=== PATIENT | female | born 1950 | race Caucasian/White ===

== ENCOUNTER 2019-03-26 20:22 | Emergency (ER) | payer OTHER ==
--- OUTSIDE RECORDS SUMMARY | 2019-03-26 20:24 | XMS REPORT ---
:1950 [facility] [address] Monzon [address] [place] [id number] Care Team Providers Name Role Phone Unavailable Unavailable Unavailable Problems This patient has no known problems. Allergies, Adverse Reactions, Alerts This patient has no known allergies or adverse reactions. Medications This patient has no known medications.
[2019-03-26] MEDS ORDERED: KETOROLAC 30 MG/ML INJ ONE (21:30)
[2019-03-26] MEDS ORDERED: HYDROCODONE/APAP 5/325 MG TAB ONE (21:30)
--- NOTE | 2019-03-26 21:32 | EDPHYS ---
Physician Documentation [facility] Name: Yani Giang Age: 68 yrs Sex: Female : 1950 Arrival Date: 03/26/2019 Time: 20:25 Bed 18 Private MD: ED Physician Chris Terry HPI: 03/26 21:20 This 68 yrs old Female presents to ER via Ambulatory with complaints of tw4 Shoulder Pain. 21:20 The patient or guardian complains of pain, that is chronic. left shoulder. Context: The tw4 problem was sustained at home, resulted from repetitive motion, lifting. Onset: The symptoms/episode began/occurred just prior to arrival. Modifying factors: the symptoms are alleviated by nothing. The symptoms are aggravated by lifting weight, nothing. Associated signs and symptoms: The patient has no apparent associated signs or symptoms. Severity of symptoms: At their worst the symptoms were mild, in the emergency department the symptoms are unchanged. The patient has not experienced similar symptoms in the past. Historical: - Allergies: 20:41 Betadine; tl1 20:41 TETRACYCLINES; tl1 20:41 Ceclor; tl1 20:41 Augmentin; tl1 20:41 Talwin; tl1 20:41 mecaptopurine; tl1 20:41 Codeine; tl1 20:41 Darvocet-N 100; tl1 20:41 Naproxen; tl1 20:41 Vytorin 10-10; tl1 20:41 Crestor; tl1 20:41 Levaquin; tl1 20:41 Azithromycin; tl1 - Immunization history:: Adult Immunizations not up to date. - Social history:: Smoking status: Patient/guardian denies using tobacco, Patient uses alcohol, but reports only rare drinking. - Ebola Screening: : Patient negative for fever greater than or equal to 101.5 degrees Fahrenheit, and additional compatible Ebola Virus Disease symptoms Patient denies exposure to infectious person Patient denies travel to an Ebola-affected area in the 21 days before illness onset. ROS: 21:20 Constitutional: Negative for fever, chills, and weight loss, Eyes: Negative for injury, tw4 pain, redness, and discharge, Cardiovascular: Negative for chest pain, palpitations, and edema, Respiratory: Negative for shortness of breath, cough, wheezing, and pleuritic chest pain, Abdomen/GI: Negative for abdominal pain, nausea, vomiting, diarrhea, and constipation, Back: Negative for injury and pain, Neuro: Negative for headache, weakness, numbness, tingling, and seizure. 21:20 MS/extremity: Positive for decreased range of motion, Negative for injury or acute deformity, deformity, ecchymosis, erythema, puncture, rash, swelling. Exam: 21:20 Constitutional: This is a well developed, well nourished patient who is awake, alert, tw4 and in no acute distress. Head/Face: Normocephalic, atraumatic. Chest/axilla: Normal chest wall appearance and motion. Nontender with no deformity. No lesions are appreciated. Cardiovascular: Regular rate and rhythm with a normal S1 and S2. No gallops, murmurs, or rubs. Normal PMI, no JVD. No pulse deficits. Respiratory: Lungs have equal breath sounds bilaterally, clear to auscultation and percussion. No rales, rhonchi or wheezes noted. No increased work of breathing, no retractions or nasal flaring. Abdomen/GI: Soft, non-tender, with normal bowel sounds. No distension or tympany. No guarding or rebound. No evidence of tenderness throughout. 21:20 Musculoskeletal/extremity: Extremities: all appear grossly normal, with no appreciated pain with palpation, ROM: limited active range of motion due to pain, limited passive range of motion due to pain. Vital Signs: 20:42 BP 155 / 75; Pulse 77; Resp 17; Temp 98.9; Pulse Ox 100% ; Weight 66.22 kg; Height 5 tl1 ft. 5 in. (165.10 cm); Pain 10/10; 21:52 BP 138 / 76; Pulse 71; Resp 16; Pulse Ox 100% on R/A; rv 20:42 Body Mass Index 24.30 (66.22 kg, 165.10 cm) tl1 MDM: 20:52 Patient medically screened. tw4 03/27 06:22 Differential diagnosis: tendonitis. Data reviewed: vital signs, nurses notes. Data tw4 interpreted: hall monitor: not applicable for this patient encounter. Counseling: I had a detailed discussion with the patient and/or guardian regarding: the historical points, exam findings, and any diagnostic results supporting the discharge/admit diagnosis. Medication response: Toradol markedly relieved the patient's pain. Response to treatment: and as a result, I will discharge patient. 03/26 21:19 Order name: Grabiel; Complete Time: :30 tw4 Administered Medications: 03/26 21:30 Drug: TORadol 60 mg Route: IM; Site: right deltoid; rv 21:50 Follow up: Response: No adverse reaction rv 21:30 Drug: Clymer 5 mg-325 mg 1 tabs Route: PO; rv 21:50 Follow up: Response: RASS: Alert and Calm (0) rv Disposition: 03/26/19 21:32 Discharged to Home. Impression: Shoulder lesion, unspecified, left shoulder. - Condition is Stable. - Discharge Instructions: Rotator Cuff Injury, Rotator Cuff Tendinitis, Shoulder Pain, Shoulder Sprain. - Prescriptions for Ibuprofen 800 mg Oral Tablet - take 1 tablet by ORAL route every 8 hours As needed take with food; 30 tablet. Tylenol- Codeine #3 300-30 mg Oral Tablet - take 2 tablet by ORAL route every 6 hours As needed; 6 tablet. - Medication Reconciliation Form, Thank You Letter, Antibiotic Education, Prescription Opioid Use form. - Follow up: Private Physician; When: Upon discharge from the Emergency Department; Reason: Recheck today's complaints, Continuance of care. Follow up: Sidney Pitts MD; When: Upon discharge from the Emergency Department; Reason: Recheck today's complaints, Continuance of care. - Problem is an ongoing problem. - Symptoms have improved. Signatures: Aleyda Austin, RN RN tl1 Chris Terry MD MD tw4 Nii Simmons RN RN rv Corrections: (The following items were deleted from the chart) 21:52 21:32 03/26/2019 21:32 Discharged to Home. Impression: Shoulder lesion, unspecified, rv left shoulder. Condition is Stable. Forms are Medication Reconciliation Form, Thank You Letter, Antibiotic Education, Prescription Opioid Use. Follow up: Private Physician; When: Upon discharge from the Emergency Department; Reason: Recheck today's complaints, Continuance of care. Follow up: Sidney Pitts; When: Upon discharge from the Emergency Department; Reason: Recheck today's complaints, Continuance of care. Problem is an ongoing problem. Symptoms have improved. tw4
--- NOTE | 2019-03-26 21:32 | ER ---
Nurse's Notes [facility] Name: Yani Giang Age: 68 yrs Sex: Female : 1950 Arrival Date: 03/26/2019 Time: 20:25 Bed 18 Private MD: Diagnosis: Shoulder lesion, unspecified, left shoulder Presentation: 03/26 20:36 Presenting complaint: Patient states: I have a torn rotator cuff and have been being tl1 treated by Dr Perez since July of 2016. I had a third injection in July of 2018. I woke up Mar 24 with severe pain in my left shoulder. I am suppose to see Dr Pitts in the morning but the pain is to severe. Transition of care: patient was not received from another setting of care. Onset of symptoms is unknown. Risk Assessment: Do you want to hurt yourself or someone else? Patient reports no desire to harm self or others. Initial Sepsis Screen: Does the patient meet any 2 criteria? No. Patient's initial sepsis screen is negative. Does the patient have a suspected source of infection? No. Patient's initial sepsis screen is negative. Care prior to arrival: Medication(s) given: Tylenol. 20:36 Method Of Arrival: Ambulatory tl1 20:36 Acuity: CHING 3 tl1 Historical: - Allergies: 20:41 Betadine; tl1 20:41 TETRACYCLINES; tl1 20:41 Ceclor; tl1 20:41 Augmentin; tl1 20:41 Talwin; tl1 20:41 mecaptopurine; tl1 20:41 Codeine; tl1 20:41 Darvocet-N 100; tl1 20:41 Naproxen; tl1 20:41 Vytorin 10-10; tl1 20:41 Crestor; tl1 20:41 Levaquin; tl1 20:41 Azithromycin; tl1 - Immunization history:: Adult Immunizations not up to date. - Social history:: Smoking status: Patient/guardian denies using tobacco, Patient uses alcohol, but reports only rare drinking. - Ebola Screening: : Patient negative for fever greater than or equal to 101.5 degrees Fahrenheit, and additional compatible Ebola Virus Disease symptoms Patient denies exposure to infectious person Patient denies travel to an Ebola-affected area in the 21 days before illness onset. Screenin:00 Abuse screen: Denies threats or abuse. Denies injuries from another. Nutritional rv screening: No deficits noted. 21:00 Tuberculosis screening: No symptoms or risk factors identified. Fall Risk None rv identified. Assessment: 21:00 General: Appears in no apparent distress. uncomfortable, Behavior is calm, cooperative. rv 21:00 Pain: Complains of pain in left shoulder. Neuro: Level of Consciousness is awake, rv alert, obeys commands, Oriented to person, place, time, situation. Derm: Skin is intact. Musculoskeletal: Range of motion: limited in left shoulder Swelling absent. Vital Signs: 20:42 BP 155 / 75; Pulse 77; Resp 17; Temp 98.9; Pulse Ox 100% ; Weight 66.22 kg; Height 5 tl1 ft. 5 in. (165.10 cm); Pain 10/10; 21:52 BP 138 / 76; Pulse 71; Resp 16; Pulse Ox 100% on R/A; rv 20:42 Body Mass Index 24.30 (66.22 kg, 165.10 cm) tl1 ED Course: 20:25 Patient arrived in ED. jg7 20:39 Triage completed. tl1 20:41 Arm band placed on right wrist. tl1 20:51 Nii Simmons, ANGELINA is Primary Nurse. rv 20:52 Chris Terry MD is Attending Physician. tw4 21:00 Patient has correct armband on for positive identification. Bed in low position. Call rv light in reach. Side rails up X 1. Adult w/ patient. 21:31 Sidney Pitts MD is Referral Physician. tw4 21:52 No provider procedures requiring assistance completed. Patient did not have IV access rv during this emergency room visit. Administered Medications: 21:30 Drug: TORadol 60 mg Route: IM; Site: right deltoid; rv 21:50 Follow up: Response: No adverse reaction rv 21:30 Drug: Brady 5 mg-325 mg 1 tabs Route: PO; rv 21:50 Follow up: Response: RASS: Alert and Calm (0) rv Outcome: 21:32 Discharge ordered by . tw4 21:52 Discharged to home ambulatory, with family. rv 21:52 Condition: good 21:52 Discharge instructions given to patient, family, Instructed on discharge instructions, follow up and referral plans. medication usage, Demonstrated understanding of instructions, follow-up care, medications, Prescriptions given X 2. 21:52 Patient left the ED. rv Signatures: Aleyda Austin RN RN tl1 Chris Terry MD MD tw4 Nii Simmons RN RN rv Sade [id number]
[2019-03-26 23:00] VITALS: TEMP 98.9; O2SAT 100
[2019-03-26 23:02] VITALS: BP 138/76
== END 2019-03-26 21:52 | disposition home or self-care (01) ==
LOC: ER 20:22
DX: M75.92 Shoulder lesion, unspecified, left shoulder (principal); X50.3XXA Overexertion from repetitive movements, initial encounter; Y93.89 Activity, other specified; Y92.009 Unspecified place in unspecified non-institutional (private) residence as the place of occurrence of the external cause; Z88.1 Allergy status to other antibiotic agents; Z88.3 Allergy status to other anti-infective agents; Z88.5 Allergy status to narcotic agent; Z88.6 Allergy status to analgesic agent; Z88.8 Allergy status to other drugs, medicaments and biological substances
CPT/HCPCS: 96372; 99283

== ENCOUNTER 2019-04-03 19:43 | Inpatient (IN) | payer OTHER ==
--- OUTSIDE RECORDS SUMMARY | 2019-04-03 19:45 | XMS REPORT ---
:1950 [facility] [address] Monzon [address] [place] [id number] Care Team Providers Name Role Phone Unavailable Unavailable Unavailable Problems This patient has no known problems. Allergies, Adverse Reactions, Alerts This patient has no known allergies or adverse reactions. Medications This patient has no known medications.
[2019-04-03 20:50] LABS: Absolute Lymphocytes (CBC) 1.2 K/uL (0.7-4.9); Basophils % 0.6 % (0-1.3); Hematocrit 38.7 % (36.0-45.0); Lymphocytes % 22.1 % (15.3-44.8); MPV 8.4 fL (7.6-11.3)
--- NOTE | 2019-04-03 21:03 | RAD REPORT ---
EXAM DESCRIPTION: RAD - Chest Single View - 04/03/2019 8:54 pm CLINICAL HISTORY: CHEST PAIN Chest pain. COMPARISON: Chest Pa And Lat (2 Views) dated 08/16/2017; Chest Pa And Lat (2 Views) dated 06/10/2016; CH EST SINGLE VIEW dated 08/24/2013; CHEST SINGLE VIEW dated 09/23/2007 FINDINGS: Portable technique limits examination quality. The lungs are emphysematous but grossly clear. The heart is normal in size. No displaced fractures. IMPRESSION: COPD.
[2019-04-03 21:11] LABS: Albumin 3.6 g/dL (3.4-5.0); Bilirubin Direct 0.1 mg/dL (0-0.2); Bilirubin Total 0.5 mg/dL (0.2-1.0); Magnesium 1.8 mg/dL (1.8-2.4); Potassium 3.6 mmol/L (3.5-5.1); Protein, Total 6.7 g/dL (6.4-8.2); Troponin (Emerg Dept Use Only) 0.4 ng/mL (0.0-0.045)
[2019-04-03 21:16] LABS: Urine Blood NEGATIVE (NEG); Urine Glucose NEGATIVE (NEG)
[2019-04-03 21:17] LABS: Urine Protein NEGATIVE (NEG)
[2019-04-03 21:25] LABS: Protime INR 1.06
--- NOTE | 2019-04-03 22:00 | ER ---
Nurse's Notes [facility] Name: Yani Giang Age: 69 yrs Sex: Female : 1950 Arrival Date: 04/03/2019 Time: 19:50 Bed 16 Private MD: Diagnosis: Other chest pain;Angina pectoris Presentation: 04/03 19:56 Presenting complaint: EMS states: Pt c/o chest pain around 7pm, it happened when pt ca1 bent over to lift stuff from the floor. Pt reports pain radiates to the shoulders and to the back. Pt also reports extensive rotator cuff injury on the L shoulder since 2016 and takes Tylenol #3 for it. LO chest is tender upon palpation and release. PT has No history of heart conditions. VS stable, NSR on 12L. Transition of care: patient was not received from another setting of care. Onset of symptoms was April 03, 2019 at 19:00. Risk Assessment: Do you want to hurt yourself or someone else? Patient reports no desire to harm self or others. Initial Sepsis Screen: Does the patient meet any 2 criteria? No. Patient's initial sepsis screen is negative. Does the patient have a suspected source of infection? No. Patient's initial sepsis screen is negative. Care prior to arrival: Medication(s) given: Toradol 30MG IV IV initiated. 20 GA, in the left hand. 19:56 Method Of Arrival: EMS: [facility] ca1 19:56 Acuity: CHING 3 ca1 Historical: - Allergies: 20:10 Augmentin; ca1 20:10 Azithromycin; ca1 20:10 Betadine; ca1 20:10 Ceclor; ca1 20:10 Codeine; ca1 20:10 Crestor; ca1 20:10 Darvocet-N 100; ca1 20:10 Levaquin; ca1 20:10 mecaptopurine; ca1 20:10 Naproxen; ca1 20:10 Talwin; ca1 20:10 TETRACYCLINES; ca1 20:10 Vytorin 10-10; ca1 20:10 meloxicam; ca1 20:10 Tramadol HCl; ca1 20:10 Bactrim; ca1 20:10 Ciprofloxacin; ca1 20:10 Red Dye; ca1 20:10 WelChol; ca1 20:10 Celebrex; ca1 - Home Meds: 20:10 Ziac/Biospar 2.5/6.25mg every other day [Active]; aspirin 81 mg oral TbEC 1 tab every ca1 other day [Active]; Prilosec 20 mg Oral cpDR 1 cap once daily [Active]; Fish Oil 1,000 mg oral cap [Active]; - PMHx: 20:10 GERD; Hepatitis; Leukemia T cell ALL; Rheumatic Fever; IBS; ca1 - Immunization history:: Adult Immunizations not up to date, Pneumococcal vaccine is not up to date, Flu vaccine is not up to date. - Social history:: Smoking status: Patient/guardian denies using tobacco. - Ebola Screening: : Patient negative for fever greater than or equal to 101.5 degrees Fahrenheit, and additional compatible Ebola Virus Disease symptoms Patient denies exposure to infectious person Patient denies travel to an Ebola-affected area in the 21 days before illness onset No symptoms or risks identified at this time. - Family history:: not pertinent. Screenin:12 Abuse screen: Denies threats or abuse. Denies injuries from another. Nutritional ca1 screening: No deficits noted. Tuberculosis screening: No symptoms or risk factors identified. Fall Risk IV access (20 points). Assessment: 20:12 General: Appears in no apparent distress. comfortable, Behavior is calm, cooperative, ca1 appropriate for age. Pain: Complains of pain in anterior aspect of left upper chest Pain radiates to back, shoulders Pain currently is 7 out of 10 on a pain scale. at worst was 10 out of 10 on a pain scale. Quality of pain is described as heavy, pressure, Pain began 1 hour ago. Is intermittent. Neuro: Level of Consciousness is awake, alert, obeys commands, Oriented to person, place, time, situation, Appropriate for age. Cardiovascular: Heart tones S1 S2 present Capillary refill < 3 seconds Patient's skin is warm and dry. Rhythm is sinus rhythm. Respiratory: Airway is patent Respiratory effort is even, unlabored, Respiratory pattern is regular, symmetrical. GI: Abdomen is round non-distended, Bowel sounds present X 4 quads. Abd is soft and non tender X 4 quads. : No deficits noted. No signs and/or symptoms were reported regarding the genitourinary system. EENT: No deficits noted. No signs and/or symptoms were reported regarding the EENT system. Derm: Skin is intact, is healthy with good turgor, Skin is pink, warm \T\ dry. Musculoskeletal: Circulation, motion, and sensation intact. Capillary refill < 3 seconds, Range of motion: intact in all extremities. 22:30 Reassessment: Patient and/or family updated on plan of care and expected duration. Pain ea level reassessed. Patient is alert, oriented x 3, equal unlabored respirations, skin warm/dry/pink. 23:50 Reassessment: Patient and/or family updated on plan of care and expected duration. Pain ea level reassessed. Patient is alert, oriented x 3, equal unlabored respirations, skin warm/dry/pink. 04/04 00:00 Reassessment: Patient and/or family updated on plan of care and expected duration. Pain ea level reassessed. Patient is alert, oriented x 3, equal unlabored respirations, skin warm/dry/pink. Vital Signs: 04/03 20:10 BP 156 / 95; Pulse 76; Resp 15 S; Temp 99.5(O); Pulse Ox 99% on R/A; Weight 66.68 kg ca1 (R); Height 5 ft. 5 in. (165.10 cm) (R); Pain 7/10; 21:28 BP 146 / 77; Pulse 74; Resp 15; Temp 98.9(O); Pulse Ox 99% on R/A; mh5 22:48 BP 141 / 74; Pulse 79; Resp 19; Pulse Ox 100% on R/A; ea 04/04 00:10 BP 131 / 70; Pulse 69; Resp 18; Temp 98; Pulse Ox 100% ; ea 04/03 20:10 Body Mass Index 24.46 (66.68 kg, 165.10 cm) ca1 ED Course: 04/03 19:50 Patient arrived in ED. bb 19:52 Flor Navarro, ANGELINA is Primary Nurse. ca1 20:02 Triage completed. ca1 20:05 EKG done, by ED staff, reviewed by Russell Zuniga MD. mh5 20:05 Patient has correct armband on for positive identification. Placed in gown. Bed in low mh5 position. Call light in reach. Side rails up X2. Adult w/ patient. Warm blanket given. satellite project site monitor on. Pulse ox on. NIBP on. 20:10 Russell Zuniga MD is Attending Physician. bishop 20:10 Arm band placed on right wrist. ca1 20:12 No provider procedures requiring assistance completed. Maintain EMS IV. Dressing ca1 intact. Good blood return noted. Site clean \T\ dry. Gauge \T\ site: 20G L hand. 20:46 Initial lab(s) drawn, by me, sent to lab. ca1 20:54 XRAY Chest (1 view) In Process Unspecified. EDMS 21:56 Doe Bryant MD is Hospitalizing Provider[facility] 04/04 00:25 Patient admitted, IV remains in place. ea Administered Medications: 04/03 22:46 Not Given (Patient Refused): Lopressor 25 mg PO once ea 22:47 Not Given (Patient Refused): PlaVIX 300 mg PO once ea 22:47 Not Given (Patient Refused): Lopressor 2.5 mg IVP once; Hold for SBP <100 or HR <60. ea 23:05 Drug: Zofran 4 mg Route: IVP; Site: left hand; ea 04/04 00:00 Follow up: Response: No adverse reaction ea 04/03 23:06 Drug: Aspirin 162 mg Route: PO; ea 04/04 00:34 Follow up: Response: No adverse reaction ea 04/03 23:06 Drug: Pepcid 20 mg Route: IVP; Site: left hand; ea 04/04 00:00 Follow up: Response: No adverse reaction ea 04/03 23:06 Drug: morphine 2 mg Route: IVP; Site: left hand; ea 04/04 00:00 Follow up: Response: No adverse reaction; Pain is decreased ea 04/03 23:39 Drug: Lovenox 1 mg/kg Route: Sub-Q; Site: right lower abdomen; ea 04/04 00:00 Follow up: Response: No adverse reaction ea 04/03 23:40 Drug: Lopressor 2.5 mg Route: IVP; Site: left hand; ea 04/04 00:36 Follow up: Response: No adverse reaction ea 04/03 23:40 Drug: PlaVIX 300 mg Route: PO; ea 04/04 00:00 Follow up: Response: No adverse reaction ea 04/03 23:41 Drug: Lopressor 25 mg Route: PO; ea 04/04 00:35 Follow up: Response: No adverse reaction ea Outcome: 04/03 21:57 Decision to Hospitalize by Provider. [facility] 04/04 00:25 Admitted to Med/surg accompanied by tech, via wheelchair, room 207, with chart, Report ea called to Receiving nurse on second floor Condition: stable Instructed on the need for admit, Demonstrated understanding of instructions. 00:33 Patient left the ED. ea Signatures: Dispatcher [employer] Russell Hilliard MD MD cha Ballard, Brenda, RN RN Marion Madrigal [facility] Shayla Wheeler RN RN Flor Worley RN RN ca1
--- NOTE | 2019-04-03 22:01 | EDPHYS ---
Physician Documentation [facility] Name: Yani Giang Age: 69 yrs Sex: Female : 1950 Arrival Date: 04/03/2019 Time: 19:50 Bed 16 Private MD: ED Physician Russell Zuniga HPI: 04/03 21:54 This 69 yrs old Female presents to ER via EMS with complaints of Chest Pain. bishop 21:54 The patient or guardian reports chest pain that is located primarily in the substernal bishop area, anterior chest wall, left. Onset: 1 day(s) ago. The pain does not radiate. Associated signs and symptoms: Pertinent positives: dizziness, shortness of breath. The chest pain is described as a pressure, squeezing. Duration: The patient or guardian reports a single episode, that is still ongoing, but improving. Modifying factors: The symptoms are alleviated by remaining still, the symptoms are aggravated by activity, exertion. Severity of pain: At its worst the pain was mild in the emergency department the pain has improved moderately. The patient has experienced similar episodes in the past, a few times. Historical: - Allergies: 20:10 Augmentin; ca1 20:10 Azithromycin; ca1 20:10 Betadine; ca1 20:10 Ceclor; ca1 20:10 Codeine; ca1 20:10 Crestor; ca1 20:10 Darvocet-N 100; ca1 20:10 Levaquin; ca1 20:10 mecaptopurine; ca1 20:10 Naproxen; ca1 20:10 Talwin; ca1 20:10 TETRACYCLINES; ca1 20:10 Vytorin 10-10; ca1 20:10 meloxicam; ca1 20:10 Tramadol HCl; ca1 20:10 Bactrim; ca1 20:10 Ciprofloxacin; ca1 20:10 Red Dye; ca1 20:10 WelChol; ca1 20:10 Celebrex; ca1 - Home Meds: 20:10 Ziac/Biospar 2.5/6.25mg every other day [Active]; aspirin 81 mg oral TbEC 1 tab every ca1 other day [Active]; Prilosec 20 mg Oral cpDR 1 cap once daily [Active]; Fish Oil 1,000 mg oral cap [Active]; - PMHx: 20:10 GERD; Hepatitis; Leukemia T cell ALL; Rheumatic Fever; IBS; ca1 - Immunization history:: Adult Immunizations not up to date, Pneumococcal vaccine is not up to date, Flu vaccine is not up to date. - Social history:: Smoking status: Patient/guardian denies using tobacco. - Ebola Screening: : Patient negative for fever greater than or equal to 101.5 degrees Fahrenheit, and additional compatible Ebola Virus Disease symptoms Patient denies exposure to infectious person Patient denies travel to an Ebola-affected area in the 21 days before illness onset No symptoms or risks identified at this time. - Family history:: not pertinent. ROS: 21:54 Constitutional: Negative for fever, chills, and weight loss, Eyes: Negative for injury, bishop pain, redness, and discharge, ENT: Negative for injury, pain, and discharge, Neck: Negative for injury, pain, and swelling, Respiratory: Negative for shortness of breath, cough, wheezing, and pleuritic chest pain, Abdomen/GI: Negative for abdominal pain, nausea, vomiting, diarrhea, and constipation, Back: Negative for injury and pain, : Negative for injury, bleeding, discharge, and swelling, MS/Extremity: Negative for injury and deformity, Skin: Negative for injury, rash, and discoloration, Neuro: Negative for headache, weakness, numbness, tingling, and seizure, Psych: Negative for depression, anxiety, suicide ideation, homicidal ideation, and hallucinations, Allergy/Immunology: Negative for hives, rash, and allergies, Endocrine: Negative for neck swelling, polydipsia, polyuria, polyphagia, and marked weight changes, Hematologic/Lymphatic: Negative for swollen nodes, abnormal bleeding, and unusual bruising. 21:54 Cardiovascular: Positive for chest pain, of the anterior aspect of left upper chest and left breast. Exam: 21:54 Constitutional: This is a well developed, well nourished patient who is awake, alert, bishop and in no acute distress. Head/Face: Normocephalic, atraumatic. Eyes: Pupils equal round and reactive to light, extra-ocular motions intact. Lids and lashes normal. Conjunctiva and sclera are non-icteric and not injected. Cornea within normal limits. Periorbital areas with no swelling, redness, or edema. ENT: Nares patent. No nasal discharge, no septal abnormalities noted. Tympanic membranes are normal and external auditory canals are clear. Oropharynx with no redness, swelling, or masses, exudates, or evidence of obstruction, uvula midline. Mucous membranes moist. Neck: Trachea midline, no thyromegaly or masses palpated, and no cervical lymphadenopathy. Supple, full range of motion without nuchal rigidity, or vertebral point tenderness. No Meningismus. Chest/axilla: Normal chest wall appearance and motion. Nontender with no deformity. No lesions are appreciated. Cardiovascular: Regular rate and rhythm with a normal S1 and S2. No gallops, murmurs, or rubs. Normal PMI, no JVD. No pulse deficits. Respiratory: Lungs have equal breath sounds bilaterally, clear to auscultation and percussion. No rales, rhonchi or wheezes noted. No increased work of breathing, no retractions or nasal flaring. Abdomen/GI: Soft, non-tender, with normal bowel sounds. No distension or tympany. No guarding or rebound. No evidence of tenderness throughout. Back: No spinal tenderness. No costovertebral tenderness. Full range of motion. Female : Normal external genitalia. Skin: Warm, dry with normal turgor. Normal color with no rashes, no lesions, and no evidence of cellulitis. MS/ Extremity: Pulses equal, no cyanosis. Neurovascular intact. Full, normal range of motion. Neuro: Awake and alert, GCS 15, oriented to person, place, time, and situation. Cranial nerves II-XII grossly intact. Motor strength 5/5 in all extremities. Sensory grossly intact. Cerebellar exam normal. Normal gait. Psych: Awake, alert, with orientation to person, place and time. Behavior, mood, and affect are within normal limits. 21:54 Musculoskeletal/extremity: DVT Exam: No signs of deep vein thrombosis. no pain, no swelling, no tenderness, negative Homans' sign noted on exam, no appreciated bluish discoloration, no erythema, no increased warmth. Vital Signs: 20:10 BP 156 / 95; Pulse 76; Resp 15 S; Temp 99.5(O); Pulse Ox 99% on R/A; Weight 66.68 kg ca1 (R); Height 5 ft. 5 in. (165.10 cm) (R); Pain 7/10; 21:28 BP 146 / 77; Pulse 74; Resp 15; Temp 98.9(O); Pulse Ox 99% on R/A; 5 22:48 BP 141 / 74; Pulse 79; Resp 19; Pulse Ox 100% on R/A; ea 04/04 00:10 BP 131 / 70; Pulse 69; Resp 18; Temp 98; Pulse Ox 100% ; ea 04/03 20:10 Body Mass Index 24.46 (66.68 kg, 165.10 cm) ca1 MDM: 04/03 20:10 Patient medically screened. [facility] 21:55 Data reviewed: vital signs, nurses notes, lab test result(s), EKG, radiologic studies, bishop plain films. 04/03 20:15 Order name: Basic Metabolic Panel; Complete Time: 21:51 ca1 04/03 20:15 Order name: CBC with Diff; Complete Time: 21:51 ca1 04/03 20:15 Order name: LFT's; Complete Time: 21:51 ca1 04/03 20:15 Order name: Magnesium; Complete Time: 21:51 ca1 04/03 20:15 Order name: NT PRO-BNP; Complete Time: 21:51 ca1 04/03 20:15 Order name: PT-INR; Complete Time: 21:51 ca1 04/03 20:15 Order name: Troponin (emerg Dept Use Only); Complete Time: 21:51 ca1 04/03 21:10 Order name: Urine Dipstick--Ancillary (enter results); Complete Time: 21:51 2 04/03 22:32 Order name: CBC with Automated Diff EDMS 04/03 22:32 Order name: CBC with Automated Diff EDMS 04/03 22:32 Order name: CKMB Creatine Kinase MB EDMS 04/03 22:32 Order name: CKMB Creatine Kinase MB EDMS 04/03 22:32 Order name: CKMB Creatine Kinase MB EDMS 04/03 22:32 Order name: CKMB Creatine Kinase MB EDMS 04/03 20:15 Order name: XRAY Chest (1 view); Complete Time: 21:51 ca1 04/03 22:32 Order name: Comprehensive Metabolic Panel EDMS 04/03 22:32 Order name: Comprehensive Metabolic Panel EDMS 04/03 22:32 Order name: Magnesium EDMS 04/03 22:32 Order name: Magnesium EDMS 04/03 22:32 Order name: Phosphorus EDMS 04/03 22:32 Order name: Phosphorus EDMS 04/03 22:33 Order name: Troponin I EDOR 04/03 22:33 Order name: Troponin I EDOR 04/03 22:33 Order name: Troponin I EDOR 04/03 22:33 Order name: Troponin I [facility] 04/03 20:15 Order name: EKG; Complete Time: 20:16 ca1 04/03 20:15 Order name: Cardiac monitoring; Complete Time: 20:15 ca1 04/03 20:15 Order name: EKG - Nurse/Tech; Complete Time: 20:16 ca1 04/03 20:15 Order name: IV Saline Lock; Complete Time: 20:16 ca1 04/03 20:15 Order name: Labs collected and sent; Complete Time: 20:46 ca1 04/03 20:15 Order name: O2 Per Protocol; Complete Time: 20:16 [facility] 04/03 20:15 Order name: O2 Sat Monitoring; Complete Time: 20:16 ca1 04/03 21:53 Order name: EKG - Nurse/Tech; Complete Time: 23:07 2 04/03 21:54 Order name: EKG; Complete Time: 21:55 [facility] 04/03 22:32 Order name: CONS Physician Consult [facility] 04/03 22:32 Order name: Heart Healthy EDOR Administered Medications: 22:46 Not Given (Patient Refused): Lopressor 25 mg PO once ea 22:47 Not Given (Patient Refused): PlaVIX 300 mg PO once ea 22:47 Not Given (Patient Refused): Lopressor 2.5 mg IVP once; Hold for SBP <100 or HR <60. ea 23:05 Drug: Zofran 4 mg Route: IVP; Site: left hand; ea 04/04 00:00 Follow up: Response: No adverse reaction ea 04/03 23:06 Drug: Aspirin 162 mg Route: PO; ea 04/04 00:34 Follow up: Response: No adverse reaction ea 04/03 23:06 Drug: Pepcid 20 mg Route: IVP; Site: left hand; ea 04/04 00:00 Follow up: Response: No adverse reaction ea 04/03 23:06 Drug: morphine 2 mg Route: IVP; Site: left hand; ea 04/04 00:00 Follow up: Response: No adverse reaction; Pain is decreased ea 04/03 23:39 Drug: Lovenox 1 mg/kg Route: Sub-Q; Site: right lower abdomen; ea 04/04 00:00 Follow up: Response: No adverse reaction ea 04/03 23:40 Drug: Lopressor 2.5 mg Route: IVP; Site: left hand; ea 04/04 00:36 Follow up: Response: No adverse reaction ea 04/03 23:40 Drug: PlaVIX 300 mg Route: PO; ea 04/04 00:00 Follow up: Response: No adverse reaction ea 04/03 23:41 Drug: Lopressor 25 mg Route: PO; ea 04/04 00:35 Follow up: Response: No adverse reaction ea Disposition: 04/03/19 21:57 Hospitalization ordered by Doe Bryant for Inpatient Admission. Preliminary diagnosis are Other chest pain, Angina pectoris. - Bed requested for Telemetry/MedSurg (Inpatient). - Status is Inpatient Admission. ea - Condition is Fair. - Problem is new. - Symptoms have improved. UTI on Admission? No Signatures: Dispatcher [employer] EDMS Russell Zuniga MD MD cha Lasagna, Tonya, RN RN tl1 Shayla Wheeler RN RN ea Westbrook, MyKena 2 Flor Navarro RN RN ca1 Corrections: (The following items were deleted from the chart) 04/03 22:44 21:57 Hospitalization Ordered by Doe Bryant MD for Inpatient Admission. Preliminary tl1 diagnosis is Other chest pain; Angina pectoris. Bed requested for Telemetry/MedSurg (Inpatient). Status is Inpatient Admission. Condition is Fair. Problem is new. Symptoms have improved. UTI on Admission? No. bishop 04/04 00:33 04/03 22:44 04/03/2019 21:57 Hospitalization Ordered by Doe Bryant MD for Inpatient ea Admission. Preliminary diagnosis is Other chest pain; Angina pectoris. Bed requested for Telemetry/MedSurg (Inpatient). Status is Inpatient Admission. Condition is Fair. Problem is new. Symptoms have improved. UTI on Admission? No. tl1
[2019-04-03] MEDS ORDERED: ACETAMINOPHEN 500 MG TAB PO PRN (22:26)
[2019-04-03] MEDS ORDERED: ONDANSETRON 4 MG/2 ML VIAL IV PRN (22:26)
--- NOTE | 2019-04-03 22:31 | P.HP ---
Certification for Inpatient Patient admitted to: Inpatient With expected LOS: >2 Midnights Patient will require the following post-hospital care: None Practitioner: I am a practitioner with admitting privileges, knowledge of patient current condition, hospital course, and medical plan of care. Services: Services provided to patient in accordance with Admission requirements found in Title 42 Section 412.3 of the Code of Federal Regulations Patient History Date of Service: 04/03/19 Reason for admission: Chest Pain History of Present Illness: 69-year-old female with past medical history of rheumatic fever, GERD, rotator cuff tendonitis status post repair, leukemia T-cell, hepatitis came with a chest discomfort which started all of a sudden when she was doing laundry. Pain is retrosternal with radiation to left arm and left shoulder. At the time of interview the pain is 3/10 in severity. Denies any diaphoresis. No nausea vomiting or diarrhea. Denies any shortness of breath. Patient states that she had an exposure to carbon monoxide in the kitchen. No previous cardiac history. Family history of CAD The patient was assessed in the ER and was found to have an elevated troponin and given her chest pain admitted for further cardiac workup. Allergies acetaminophen [From Darvocet-N 100] Allergy (Unverified 08/24/13 15:15) Unknown amoxicillin trihydrate [From Augmentin] Allergy (Unverified 08/24/13 15:15) Unknown azithromycin Allergy (Unverified 08/24/13 15:15) Unknown colesevelam HCl [From WelChol] Allergy (Unverified 08/24/13 15:15) Unknown naproxen Allergy (Unverified 08/24/13 15:15) Unknown potassium clavulanate [From Augmentin] Allergy (Unverified 08/24/13 15:15) Unknown povidone-iodine [From Betadine] Allergy (Unverified 08/24/13 15:15) Unknown propoxyphene napsylate [From Darvocet-N 100] Allergy (Unverified 08/24/13 15:15) Unknown rosuvastatin calcium [From Crestor] Allergy (Unverified 08/24/13 15:15) Unknown soap [From Betadine] Allergy (Unverified 08/24/13 15:15) Unknown tetracycline [Tetracycline] Allergy (Unverified 08/24/13 15:15) Unknown codiene Allergy (Uncoded 08/24/13 15:15) Unknown levoquin Allergy (Uncoded 08/24/13 15:15) Unknown mecaptopurine Allergy (Uncoded 08/24/13 15:15) Unknown tawin Allergy (Uncoded 08/24/13 15:15) Unknown vytorin Allergy (Uncoded 08/24/13 15:15) Unknown Home medications list reviewed: Yes - Past Medical/Surgical History Past Medical History: Reviewed- Non-Contributory Past Surgical History: Reviewed- Non-Contributory - Family History Family History: Reviewed- Non-Contributory Review of Systems 10-point ROS is otherwise unremarkable Cardiovascular: Chest Pain Physical Examination - Vital Signs Temperature: 98.1 F Blood Pressure: 156/95 Pulse: 76 Respirations: 20 - Physical Exam General: Alert, In no apparent distress, Oriented x3 HEENT: Atraumatic, Normocephalic Neck: Supple, 2+ carotid pulse no bruit Respiratory: Clear to auscultation bilaterally, Normal air movement Cardiovascular: Normal pulses, Regular rate/rhythm Capillary refill: <2 Seconds Gastrointestinal: Soft and benign, W/out hepatosplenomegaly Musculoskeletal: No clubbing, No swelling, Tenderness, Other (With tenderness in the left shoulder with decreased range of motion) Integumentary: No rashes, No breakdown Neurological: Normal speech, Normal strength at 5/5 x4 extr Lymphatics: No axilla or inguinal lymphadenopathy Urinary: Other (No bladder distention) External genitalia: Deferred Rectal: Deferred - Studies Laboratory Data (last 24 hrs) 04/03/19 20:41: PT 12.5, INR 1.06 04/03/19 20:41: WBC 5.5, Hgb 13.3, Hct 38.7, Plt Count 197 04/03/19 20:41: Sodium 134 L, Potassium 3.6, BUN 8, Creatinine 0.91, Glucose 118 H, Magnesium 1.8, Total Bilirubin 0.5, AST 17, ALT 26, Alkaline Phosphatase 122 H Assessment and Plan - Problems (Diagnosis) (1) NSTEMI (non-ST elevated myocardial infarction) Current Visit: Yes Status: Acute (2) Unstable angina Current Visit: Yes Status: Acute (3) History of rotator cuff tear Current Visit: Yes Status: Acute (4) GERD (gastroesophageal reflux disease) Current Visit: Yes Status: Chronic (5) Carbon monoxide exposure Current Visit: Yes Status: Acute - Plan Non ST elevation AK Unstable angina GERD Rotator cuff tendinitis left side carbon monoxide exposure Plan Monitor under telemetry Trend cardiac enzyme Start on aspirin Could Not start statin due to the allergy Cardiology consult Will get an echocardiogram Pain control Will get a lipid panel and A1c Continue home medications and titrate as needed Oxygen support Will get an ABG GI/DVT prophylaxis Advanced directives full code - Advance Directives Does patient have a Living Will: No Does patient have a Durable POA for Healthcare: No Time Spent Managing Pts Care (In Minutes): 42
[2019-04-03] MEDS ORDERED: ASPIRIN 81 MG CHEWABLE TABLET ONE (22:35)
[2019-04-03] MEDS ORDERED: CLOPIDOGREL 75 MG TABLET ONE (22:36)
[2019-04-03] MEDS ORDERED: MORPHINE 2 MG/ML SYR ONE (22:36)
[2019-04-03] MEDS ORDERED: METOPROLOL TAR 25 MG TAB ONE ×2 (22:36→23:32)
[2019-04-03] MEDS ORDERED: FAMOTIDINE 20 MG/2 ML VIAL IV ONE (22:37)
[2019-04-03] MEDS ORDERED: ENOXAPARIN 60 MG/0.6 ML SQ ONE (22:37)
[2019-04-03] MEDS ORDERED: METOPROLOL TARTRATE 5 MG/5 ML INJ IV ONE (22:37)
[2019-04-03] MEDS ORDERED: KETOROLAC 30 MG/ML INJ IV PRN (23:03)
[2019-04-04] MEDS ORDERED: KETOROLAC 30 MG/ML INJ IV PRN (01:46)
[2019-04-04 02:54] LABS: Arterial Blood Carboxyhemoglob 1.3 % (0-1.5); Blood Gas Oxyhemoglobin 96.6 % (94-97); Blood O2 Saturation 98.6 % (92-98.5)
[2019-04-04 03:16] LABS: CKMB Creatine Kinase MB 6.4 ng/mL (0.3-3.6)
[2019-04-04 03:24] LABS: Troponin I 3.02 ng/mL (0.0-0.045)
[2019-04-04] MEDS ORDERED: NITROGLYCERIN 0.4 MG/TAB SL PRN (03:43)
[2019-04-04] MEDS ORDERED: ENOXAPARIN 100 MG/ML SYR SQ SCH ×4 (03:43→22:30)
[2019-04-04] MEDS ORDERED: ENOXAPARIN 40 MG/0.4 ML SQ ONE (04:24)
[2019-04-04 06:26] LABS: Basophils % 0.9 % (0-1.3); Hematocrit 38.7 % (36.0-45.0); Lymphocytes % 35.3 % (15.3-44.8); MPV 8.5 fL (7.6-11.3); RBC Red Blood Cell Count 4.68 M/uL (3.86-4.86)
[2019-04-04 06:49] LABS: Albumin 3.5 g/dL (3.4-5.0); Bilirubin Total 0.5 mg/dL (0.2-1.0); Magnesium 1.9 mg/dL (1.8-2.4); Phosphorus 3.5 mg/dL (2.5-4.9); Potassium 3.8 mmol/L (3.5-5.1); Protein, Total 6.6 g/dL (6.4-8.2)
[2019-04-04 07:31] LABS: CKMB Creatine Kinase MB 8.3 ng/mL (0.3-3.6)
[2019-04-04 07:36] LABS: Troponin I 3.21 ng/mL (0.0-0.045)
--- NOTE | 2019-04-04 08:09 | EKG ---
Test Date: 2019-04-03 Test Time: 20:01:10 Consulting Intern: KARINA MEASUREMENT RESULTS: Intervals: Rate: 66 GA: 126 QRSD: 86 QT: 426 QTc: 446 [place]: P: GA: 126 QRS: -53 T: 39 INTERPRETIVE STATEMENTS: Normal sinus rhythm Left axis deviation RSR' or QR pattern in V1 suggests right ventricular conduction delay anterlateral ischemia Abnormal ECG Compared to ECG 08/24/2013 11:54:39 RSR' in V1 or V2 now present Myocardial infarct finding now present Sinus bradycardia no longer present T-wave abnormality no longer present Electronically Signed On 04-04-19 08:09:19 ASSOCIATE SOFTWARE ENGINEER by Clifton Ospina
[2019-04-04] MEDS ORDERED: predniSONE 20 MG TAB PO ONE (08:45)
[2019-04-04] MEDS: METOPROLOL TAR 25 MG TAB PO SCH ×2 (08:49→20:19)
[2019-04-04] MEDS ORDERED: ENOXAPARIN 40 MG/0.4 ML SQ SCH (09:00)
[2019-04-04] MEDS ORDERED: ASPIRIN EC 81 MG TAB PO SCH ×2 (09:00)
[2019-04-04] MEDS ORDERED: POTASSIUM CL SA 10 MEQ TAB PO ONE (09:00)
[2019-04-04] MEDS ORDERED: LIDOCAINE 1% 20 ML MDV ONE (09:59)
[2019-04-04] MEDS ORDERED: HEPA 1000U/500MLS 1,000 UNIT/500 ML BAG IV ONE (09:59)
--- NOTE | 2019-04-04 10:27 | P.PN ---
Subjective Date of Service: 04/04/19 Chief Complaint: Chest Pain Subjective: No new changes, Doing well (anxious for cath today , no more chest pain) Review of Systems Unremarkable Physical Examination - Vital Signs Temperature: 98.3 F Blood Pressure: 161/78 Pulse: 74 Respirations: 15 Pulse Ox (%): 100 - Physical Exam General: Alert, In no apparent distress HEENT: Atraumatic, Normocephalic Neck: Supple, 2+ carotid pulse no bruit, JVD not distended Respiratory: Clear to auscultation bilaterally, Normal air movement Cardiovascular: No edema, Normal pulses, Regular rate/rhythm, Normal S1 S2 Gastrointestinal: Normal bowel sounds, Soft and benign Neurological: Normal gait, Normal speech, Normal strength at 5/5 x4 extr External genitalia: No edema - Studies Laboratory Data (last 24 hrs) 04/03/19 20:41: PT 12.5, INR 1.06 04/03/19 20:41: WBC 5.5, Hgb 13.3, Hct 38.7, Plt Count 197 04/03/19 20:41: Sodium 134 L, Potassium 3.6, BUN 8, Creatinine 0.91, Glucose 118 H, Magnesium 1.8, Total Bilirubin 0.5, AST 17, ALT 26, Alkaline Phosphatase 122 H Medications List Reviewed: Yes Assessment & Plan - Problems (Diagnosis) (1) NSTEMI (non-ST elevated myocardial infarction) Current Visit: Yes Status: Acute (2) Unstable angina Current Visit: Yes Status: Acute (3) GERD (gastroesophageal reflux disease) Current Visit: Yes Status: Chronic Plan to discharge in: 24 Hours - Code Status/Comfort Care Code Status Assessed: Yes Physician Review: Patient Assessed, Agree with Above Assessment and Plan Physician Review Additional Text: # NSTEMI - follow cardiology for plan cath -will defer mgt # HTN -c/w meds possible dc in am Critical Care: Yes
[2019-04-04] MEDS ORDERED: ATROPINE SULF 1 MG/10 ML SYR IV ONE (11:34)
[2019-04-04] MEDS ORDERED: FENTANYL CITR 100 MCG/2 ML ONE (11:34)
[2019-04-04] MEDS ORDERED: NITROGLYCERIN/D5W 25 MG/250 ML BTL IV ONE (11:34)
[2019-04-04] MEDS ORDERED: NITROGLYCERIN 100 MCG/ML SYR (for cath lab use only) IV ONE (11:34)
[2019-04-04] MEDS ORDERED: NA CHLORIDE 0.9% 50 ML ONE (11:34)
[2019-04-04] MEDS ORDERED: MIDAZOLAM HCL 2 MG/2 ML INJ ONE ×3 (11:34→12:31)
[2019-04-04] MEDS ORDERED: NA CHLORIDE 0.9% 500 ML ONE (11:44)
--- NOTE | 2019-04-04 11:58 | EKG ---
Test Date: 2019-04-04 Test Time: 09:09:06 Automotive Accessory Installer: JIMENEZ MEASUREMENT RESULTS: Intervals: Rate: 65 ME: 134 QRSD: 94 QT: 480 QTc: 499 [place]: P: ME: 134 QRS: -31 T: 106 INTERPRETIVE STATEMENTS: Normal sinus rhythm Left axis deviation T wave abnormality, consider anterolateral ischemia Prolonged QT Abnormal ECG Compared to ECG 04/03/2019 20:01:10 T-wave abnormality now present Prolonged QT interval now present Possible ischemia still present Electronically Signed On 04-04-19 11:56:53 LPN CARE MANAGER by Clifton Ospina
[2019-04-04] MEDS ORDERED: METHYLPREDNISOLONE 125 MG INJ ONE (12:04)
[2019-04-04] MEDS ORDERED: ASPIRIN 325 MG TAB ONE (12:25)
[2019-04-04] MEDS ORDERED: PRASUGREL (EFFIENT) 10 MG TAB ONE (12:25)
[2019-04-04] MEDS ORDERED: ASPIRIN 81 MG CHEWABLE TABLET ONE (12:40)
--- NOTE | 2019-04-04 13:36 | ECHO ---
HEIGHT: 5 ft 5 inWEIGHT: 151 lb 14.4 oz DATE OF STUDY: 04/04/[address]: Ha Bryant DO 2-DIMENSIONAL: YES M.MODE: YES DOPPLER: YES COLOR FLOW: YES TDS: NO PORTABLE: NO DEFINITY: NO BUBBLE STUDY: NO DIAGNOSIS: UNSTABLE ANGINA CARDIAC HISTORY: CATHERIZATION: NO SURGERY: NO PROSTHETIC VALVE: NO PACEMAKER: NO MEASUREMENTS (cm) DIASTOLIC (NORMALS) SYSTOLIC (NORMALS) IVSd 0.7 (0.6-1.2) LA Diam 3.0 (1.9-4.0) LVEF 60% LVIDd 4.8 (3.5-5.7) LVIDs 3.3 (2.0-3.5) %FS 32% LVPWd 1.0 (0.6-1.2) Ao Diam 2.1 (2.0-3.7) 2 DIMENSIONAL ASSESSMENT: RIGHT ATRIUM: NORMAL LEFT ATRIUM: NORMAL RIGHT VENTRICLE: NORMAL LEFT VENTRICLE: NORMAL TRICUSPID VALVE: NORMAL MITRAL VALVE: NORMAL PULMONIC VALVE: NORMAL AORTIC VALVE: NORMAL PERICARDIAL EFFUSION: NONE AORTIC ROOT: NORMAL LEFT VENTRICULAR WALL MOTION: MILD INFEROSEPTAL HYPOKINESIS. DOPPLER/COLOR FLOW: NORMAL COMMENTS: NORMAL LEFT VENTRICULAR SIZE. NORMAL LEFT VENTRICULAR EJECTION FRACTION. MILD INFEROSEPTAL HYPOKINESIS. NO EFFUSION. TECHNOLOGIST: Josie VILLEDA
--- NOTE | 2019-04-04 14:19 | CON ---
Date of Consultation: 04/04/[address] Marina service on 04/03/2019. I saw the patient on 04/04/2019. Reason For Consultation: [id number] myocardial infarction. History Of Present Illness: Ms. 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 Troponin was 3.02. Has seen Dr. Pa in the past. Recent stress test was negative. Symptoms lasted for appro ximately 2 hours. No nausea, vomiting, diaphoresis, palpitation, PND, orthopnea, pedal edema, or syn cope. Medications: Fish oil, aspirin, bisoprolol with hydrochlorothiazide, Prilosec. Review of Systems: Negative. Social History: Negative. Family History: Negative. Allergies: HER SHE IS ALLERGIC TO IODINE, TYLENOL, POTASSIUM, ERYTHROMYCIN, AND STATIN AMONG OTHERS. Physical Examination: Vital Signs: Stable. She was afebrile. HEENT: Negative. Neck: Supple without any bruit, lymphadenopathy, JVD, or thyromegaly. Chest: Clear to auscultation and percussion. Cardiac: Revealed a regular rhythm and rate. No murmurs, gallops, or rubs. Abdomen: Benign. Extremities: Revealed no clubbing, cyanosis, or edema. Diagnostic Data: EKG showed anteroapical ischemia. Troponin is 3.02, cholesterol is 215, her LDL was 137. Chest x-ray was negative. Impression And Plan: 1.Acute [id number] myocardial infarction. 2.Dyslipidemia. 3.Hypertension. 4.Gastroesophageal reflux disease. 5.History of rheumatic fever. 6.Irritable bowel syndrome. 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 Ms. Giang is allergic to iodine. I will pre-treat her with prednisone. The case was discussed wit h Dr. Pa. Patient preferred to have her catheterization here and not have to travel to [place] to have it done. Risk and the benefits of the heart catheterization procedure were discussed with he r and she agreed to proceed. We will continue her present regimen right now as it is. Hold Lovenox. Pre-treat with prednisone. I will also give her some Solu-Medrol during the procedure. We will se e what her catheterization showed today prior to making any final decisions. WILLIE/CROW Voice ID: [id number] Report ID: [id number]
[2019-04-04 15:06] LABS: CKMB Creatine Kinase MB 7.7 ng/mL (0.3-3.6)
[2019-04-04 15:09] LABS: Troponin I 3.42 ng/mL (0.0-0.045)
[2019-04-04] MEDS ORDERED: ENOXAPARIN 80 MG/0.8 ML SQ SCH (18:00)
[2019-04-04] MEDS: DOCOSAHEXANOIC AC/EPA 1000 MG PO SCH (20:19)
[2019-04-04] MEDS: ATORVASTATIN 80 MG TAB PO SCH (20:19)
[2019-04-04] MEDS: PANTOPRAZOLE 40MG TABLET PO SCH (20:20)
[2019-04-04] MEDS ORDERED: ATORVASTATIN 20 MG TAB PO SCH ×2 (21:00)
--- NOTE | 2019-04-04 23:10 | OP ---
Date of Procedure: 04/04/2019 Surgeon: Clifton Ospina MD Manager Behavior: Sheela Rodriguez. Indications: I saw the patient on 04/04/2019. She had come in with non-ST elevation myocardial infa rction. She has had history of hypertension, dyslipidemia, had a negative stress test within the t year, came in with chest pain radiating to the arm and left shoulder, lasted approximately 2 hours. Troponin was positive. When I saw her on the , she continued to have slight chest pain, but was much improved. She was brought to the finishing lab technician as an inpatient, prepped and draped in the routine st erile fashion, underwent a left heart catheterization, selective coronary arteriogram, and primary st ent of the mid LAD. She was prepped and draped in the routine sterile fashion. A 6-Japanese sheath wa s introduced in the right common femoral artery. Angiography there was normal. Angio-Seal was used to close the case. A 6-Japanese catheter Cameron left and right were used. She had a normal RCA. Mil d plaquing in the circumflex system. She was codominant. She had a 99% mid LAD stenosis right after the first septal perforators and the first diagonal. An XB LAD 3.5 with side hole guide was used an d 0.014 cougar wire was used to cross the lesion. A 3.0 x 12 stent was placed with 0% residual. The re were no complications. Blood Loss: 5 cc. Postoperative Diagnosis: Coronary artery disease status post acute non-ST elevation myocardial infar ction status post emergent LAD stent. Anesthesia: Total conscious sedation was 45 minutes. Patient received Angiomax, aspirin, and Effien t during the procedure. Disposition: Patient will stay in the hospital overnight and go home in the morning. WILLIE/CROW Voice ID: [id number] Report ID: [id number]
[2019-04-05] MEDS ORDERED: ZOLPIDEM TARTRATE 5 MG TABLET PO ONE (00:11)
[2019-04-05] MEDS ORDERED: ENOXAPARIN 100 MG/ML SYR SQ SCH (04:00)
[2019-04-05 06:09] LABS: Absolute Lymphocytes (CBC) 1.4 K/uL (0.7-4.9); Basophils % 0.2 % (0-1.3); Hematocrit 35.3 % (36.0-45.0); Lymphocytes % 18.4 % (15.3-44.8); MPV 8.6 fL (7.6-11.3); RBC Red Blood Cell Count 4.33 M/uL (3.86-4.86)
[2019-04-05] MEDS: PANTOPRAZOLE 40MG TABLET PO SCH (06:24)
[2019-04-05 06:32] LABS: Albumin 3.1 g/dL (3.4-5.0); Bilirubin Total 0.5 mg/dL (0.2-1.0); Potassium 4.1 mmol/L (3.5-5.1); Protein, Total 6.1 g/dL (6.4-8.2)
[2019-04-05 06:36] LABS: Troponin I 2.75 ng/mL (0.0-0.045)
[2019-04-05] MEDS: DOCOSAHEXANOIC AC/EPA 1000 MG PO SCH ×2 (08:40→20:51)
[2019-04-05] MEDS: METOPROLOL TAR 25 MG TAB PO SCH ×2 (08:41→21:00)
[2019-04-05] MEDS: ASPIRIN 81 MG CHEWABLE TABLET PO SCH (08:41)
[2019-04-05] MEDS ORDERED: NA CHLORIDE 0.9% 1,000 ML ONE (10:00)
[2019-04-05] MEDS ORDERED: NA CHLORIDE 0.9% 2,000 ML IV ONE (10:46)
--- NOTE | 2019-04-05 12:26 | RAD REPORT ---
EXAM DESCRIPTION: CT - Abdomen Pelvis Wo Contrast - 04/05/2019 11:57 am CLINICAL HISTORY: s/p heart cath, abdominal pain COMPARISON: CTSTONE PROTOCOL dated 09/26/2014; CT ABDOMEN PELVIS WO CONTRAST dated 02/01/2010; ABDOME N W O CONTRAST dated 12/17/2002 TECHNIQUE: Axial [address] imaging of the abdomen and pelvis was performed without IV contrast. No IV contrast was given because of allergy, abnormal renal function, patient refusal or physician re quest. Oral contrast was given. All CT scans are performed using dose optimization technique as appropriate and may include automated exposure control or mA/KV adjustment according to patient size. FINDINGS: No suspicious findings in the lung bases. No pericardial thickening or effusion. The liver, spleen and pancreas show no suspicious findings on non-contrast imaging. Contrast is prese nt in the gallbladder from earlier catheterization procedure. No acute gallbladder or biliary tree fi nding. No hydronephrosis or suspicious renal mass. Minimal amount of contrast is seen in the contracted urin reba bladder. No significant adrenal finding. Isodense renal masses and pyelonephritis cannot be exclu ded in the absence of IV contrast. No dilated bowel loops or bowel wall thickening. No free air or pneumatosis. There is a large 13 x 10 x 8 centimeter hematoma in the low midline pelvi s and right lower quadrant. This displaces local bowel and compresses the urinary bladder. Minimal st randing in the right inguinal canal. No inguinal hematoma. There is additional stranding in the pelvi s in addition to the large hematoma. No abnormal lymphadenopathy. No hernia seen. No suspicious bony findings. Findings telephoned to Ivana in the ICU 12:22 p.m. IMPRESSION: Large 13 x 10 x 8 centimeter hematoma in the low midline pelvis and right lower quadrant near the inguinal canal. Additional small amounts of fluid and stranding are present in the surround ing fatty tissues. No mass or hematoma in the right inguinal canal. Active bleeding cannot be assessed on a noncontrast study.
[2019-04-05 13:11] LABS: Absolute Lymphocytes (CBC) 1.7 K/uL (0.7-4.9); Basophils % 0.2 % (0-1.3); Hematocrit 26.8 % (36.0-45.0); MPV 8.6 fL (7.6-11.3); RBC Red Blood Cell Count 3.22 M/uL (3.86-4.86)
--- NOTE | 2019-04-05 13:17 | P.PN ---
Subjective Date of Service: 04/05/19 Chief Complaint: Chest Pain Subjective: No C/O voiced (- seen , feels fine - s/p stent to LAD lesion yesterday -denies any chest pain , no SOB , feels ready to go home - dsg over right femoral site removed , no hematoma collection - s/p code blue called after patient developed syncope when walking to bathroom 30mins after encounter . pt regain responsivenss within 10 sec as per staff -Noted with bp of 64/40 and started on IVF boluses with improved BP after 1L to 90s/60s -pt moved to ICU ), New changes Review of Systems 10-point ROS is otherwise unremarkable Physical Examination - Vital Signs Temperature: 97.8 F Blood Pressure: 102/72 Pulse: 77 Respirations: 18 Pulse Ox (%): 100 - Physical Exam General: Alert, Oriented x3 HEENT: Atraumatic, Normocephalic, PERRLA Neck: Supple, 2+ carotid pulse no bruit Respiratory: Clear to auscultation bilaterally, Normal air movement Cardiovascular: No edema, Normal pulses Gastrointestinal: Normal bowel sounds, Distended, Tenderness (pelvis ) Musculoskeletal: No clubbing, No swelling Integumentary: No rashes, No breakdown Neurological: Normal gait, Normal speech - Studies Laboratory Last Values WBC 7.4 K/uL (4.3-10.9) D 04/05/19 05:43 RBC 4.33 M/uL (3.86-4.86) 04/05/19 05:43 Hgb 12.4 g/dL (12.0-15.0) 04/05/19 05:43 Hct 35.3 % (36.0-45.0) L 04/05/19 05:43 MCV 81.7 fL (80-100) 04/05/19 05:43 MCH 28.7 pg (27.0-35.0) 04/05/19 05:43 MCHC 35.1 g/dL (32.0-36.0) 04/05/19 05:43 RDW 14.0 % (12.1-15.2) 04/05/19 05:43 Plt Count 243 K/uL (152-406) D 04/05/19 05:43 MPV 8.6 fL (7.6-11.3) 04/05/19 05:43 Neutrophils % 71.4 % (41.7-73.7) 04/05/19 05:43 Lymphocytes % 18.4 % (15.3-44.8) 04/05/19 05:43 Monocytes % 9.9 % (3.3-12.3) 04/05/19 05:43 Eosinophils % 0.1 % (0-4.4) 04/05/19 05:43 Basophils % 0.2 % (0-1.3) 04/05/19 05:43 Absolute Neutrophils 5.3 K/uL (1.8-8.0) 04/05/19 05:43 Absolute Lymphocytes 1.4 K/uL (0.7-4.9) 04/05/19 05:43 Absolute Monocytes 0.7 K/uL (0.1-1.3) 04/05/19 05:43 Absolute Eosinophils 0.0 K/uL (0-0.5) 04/05/19 05:43 Absolute Basophils 0.0 K/uL (0-0.5) 04/05/19 05:43 PT 12.5 SECONDS (9.5-12.5) 04/03/19 20:41 INR 1.06 04/03/19 20:41 APTT Cancelled 04/05/19 12:41 Activated Clotting Time 238 SECONDS (127-162) H 04/04/19 13:05 pH 7.49 (7.35-7.45) H 04/04/19 Unknown pCO2 29.9 mmHG (35-45) L 04/04/19 Unknown pO2 106.0 mmHG (75-100) H 04/04/19 Unknown HCO3 22.8 mmol/L (22-28) 04/04/19 Unknown Base Excess -0.2 mmol/L 04/04/19 Unknown Oxyhemoglobin 96.6 % (94-97) 04/04/19 Unknown ABG O2 Sat (Measured) 98.6 % (92-98.5) H 04/04/19 Unknown ABG Carboxyhemoglobin 1.3 % (0-1.5) 04/04/19 Unknown ABG Methemoglobin 0.7 % (0-1.5) 04/04/19 Unknown Other Total Hgb 13.1 g/dl (12-18) 04/04/19 Unknown Inspired O2 21.0 % 04/04/19 Unknown Sodium 134 mmol/L (136-145) L 04/05/19 05:43 Potassium 4.1 mmol/L (3.5-5.1) 04/05/19 05:43 Chloride 104 mmol/L (98-107) 04/05/19 05:43 Carbon Dioxide 24 mmol/L (21-32) 04/05/19 05:43 BUN 9 mg/dL (7-18) 04/05/19 05:43 Creatinine 0.68 mg/dL (0.55-1.3) 04/05/19 05:43 Estimated GFR 86 mL/min (=/>90) L 04/05/19 05:43 Glucose 113 mg/dL (74-106) H 04/05/19 05:43 POC Glucose 117 mg/dl (65-120) 04/05/19 10:00 Hemoglobin A1c 5.2 % (4.2-6.3) 04/04/19 06:00 Calcium 8.5 mg/dL (8.5-10.1) 04/05/19 05:43 Phosphorus 3.5 mg/dL (2.5-4.9) 04/04/19 06:00 Magnesium 1.9 mg/dL (1.8-2.4) 04/04/19 06:00 Total Bilirubin 0.5 mg/dL (0.2-1.0) 04/05/19 05:43 Direct Bilirubin 0.1 mg/dL (0-0.2) 04/03/19 20:41 AST 19 U/L (15-37) 04/05/19 05:43 ALT 27 U/L (12-78) 04/05/19 05:43 Alkaline Phosphatase 106 U/L (45-117) 04/05/19 05:43 CK-MB (CK-2) 7.7 ng/mL (0.3-3.6) H 04/04/19 14:25 Rapid Troponin I 0.40 ng/mL (0.0-0.045) H 04/03/19 20:41 Troponin I 2.75 ng/mL (0.0-0.045) H* 04/05/19 05:43 NT-Pro-B Natriuret Pep 1429 pg/mL (<125) H 04/03/19 20:41 Serum Total Protein 6.1 g/dL (6.4-8.2) L 04/05/19 05:43 Albumin 3.1 g/dL (3.4-5.0) L 04/05/19 05:43 Globulin 3.0 g/dL (2.3-3.5) 04/05/19 05:43 Albumin/Globulin Ratio 1.0 (1.1-1.8) L 04/05/19 05:43 Triglycerides 114 mg/dL (<150) 04/04/19 06:00 Cholesterol 215 mg/dL (<200) H 04/04/19 06:00 LDL Cholesterol, Calc 137 (<130) H 04/04/19 06:00 HDL Cholesterol 55 mg/dL (40-60) 04/04/19 06:00 Cholesterol/HDL Ratio 3.91 04/04/19 06:00 Urine pH 6.0 (5.0-7.0) 04/03/19 21:10 Ur Specific [place] 1.010 (1.005-1.030) 04/03/19 21:10 Urine Ketones Negative (NEG) 04/03/19 21:10 Urine Blood Negative (NEG) 04/03/19 21:10 Urine Nitrite Negative (NEG) 04/03/19 21:10 Ur Leukocyte Esterase Negative (NEG) 04/03/19 21:10 Urine Glucose Negative (NEG) 04/03/19 21:10 Urine Total Protein Negative (NEG) 04/03/19 21:10 Medications List Reviewed: Yes Assessment & Plan - Problems (Diagnosis) (1) NSTEMI (non-ST elevated myocardial infarction) Current Visit: Yes Status: Acute (2) Unstable angina Current Visit: Yes Status: Acute (3) GERD (gastroesophageal reflux disease) Current Visit: Yes Status: Chronic Physician Review: Patient Assessed, Agree with Above Assessment and Plan Physician Review Additional Text: # NSTEMI -s/p LAD stent placement - no recurrent of symptoms # Syncope - due to intravascular depletion from abdominal bleed -c/w IVF # Abdominal bleed - stat CT shows RLQ and pelvis hematoma - likely due to complications from cath - unable to get RBC nuclear scan now -will obtain repeat CT with contrast to r/o continuous bleed -if ongoing bleed , will consult surgery -will obtain state cbc , pt/inr ,ptt now
[2019-04-05 13:22] LABS: Protime INR 1.13
--- NOTE | 2019-04-05 14:01 | RAD REPORT ---
EXAM DESCRIPTION: CT - CT ANGIO ABD/PELVIS W CONTRAST - 04/05/2019 1:50 pm CLINICAL HISTORY: f/u hematoma RLQ/lower pelvis, hematoma, possible active bleeding COMPARISON: CT imaging April 05 TECHNIQUE: Dynamically enhanced 3 mm thick images of the abdomen and pelvis were obtained during adm inistration of approximately 150mL Isovue 370 IV contrast. Sagittal and coronal reconstruction images were generated and reviewed. Exam utilizes a protocol to evaluate entire course of the aorta. All CT scans are performed using dose optimization technique as appropriate and may include automated exposure control or mA/KV adjustment according to patient size. FINDINGS: Aorta is normal in diameter with no dissection or other acute aortic findings. Reconstruct ion images show no significant findings. Celiac, SMA and TRINO vessels also unremarkable. Single renal artery supply each kidney in show no suspicious finding. Aortic calcifications are present. Prominent calcifications are present at the origin of each common iliac artery with 40% stenosis at the origin of the left common iliac artery. The bilateral internal iliac and external iliac artery show no significant luminal narrowing. The bilateral common femoral a rteries are also unremarkable. There is no active extravasation of contrast material. Large pelvic and right lower quadrant hematoma again noted. There continues to be extrinsic compressi on of the urinary bladder by the hematoma. No evidence for bowel ischemia or acute GI finding. IMPRESSION: Contrast CT angio examination shows no extravasation of contrast. No evidence for active arterial bleeding. Large pelvic hematoma again identified. The aorta, mesenteric vasculature and renal vasculature show no significant findings. Approximately 40% stenosis at the origin of the left common iliac artery.
[2019-04-05] MEDS: D5 0.9 NS 1,000 ML IV SCH (14:51)
[2019-04-05] MEDS: ATORVASTATIN 80 MG TAB PO SCH (20:51)
--- NOTE | 2019-04-05 23:34 | PN ---
Date of Progress Note: 04/05/2019 Ms. Giang had a rather urgent catheterization on 04/04/2019. She underwent an angioplasty and sten t of a very tight proximal LAD lesion. Did well postoperatively until early this morning when she ac tually was straining in the restroom and actually had a hematoma that is retroperitoneal by CT scan. Her hematoma was significant in size. She had an episode of syncope, was taken to the ICU, hydrated . When I saw her, she had a normal blood pressure of 95/60. She was asymptomatic. Hemoglobin was 9 .2. She was in sinus rhythm, had no chest pain. Repeat CT angiography revealed no further extravasa tion of blood from the iliac artery. Pressure had been held by the mushroom laborer staff. We will keep her in the ICU, keep a check on her CBC, hydrate her, transfuse if her hemoglobin goes below 8 or 7. Co ntinue her medical therapy, otherwise. I will continue to follow her. WILLIE/CROW Voice ID: [id number] Report ID: [id number]
[2019-04-06] MEDS: PANTOPRAZOLE 40MG TABLET PO SCH ×2 (00:14→20:07)
[2019-04-06] MEDS: D5 0.9 NS 1,000 ML IV SCH ×3 (00:54→19:14)
[2019-04-06 05:00] VITALS: BMI 26.9
[2019-04-06 05:15] LABS: Absolute Lymphocytes (CBC) 2.1 K/uL (0.7-4.9); Basophils % 0.4 % (0-1.3); Hematocrit 23.8 % (36.0-45.0); Lymphocytes % 23.8 % (15.3-44.8); MPV 8.5 fL (7.6-11.3); RBC Red Blood Cell Count 2.85 M/uL (3.86-4.86)
[2019-04-06] MEDS: ASPIRIN 81 MG CHEWABLE TABLET PO SCH (08:11)
[2019-04-06] MEDS: DOCOSAHEXANOIC AC/EPA 1000 MG PO SCH ×2 (08:12→20:05)
[2019-04-06] MEDS: METOPROLOL TAR 25 MG TAB PO SCH ×2 (09:00→20:05)
--- NOTE | 2019-04-06 09:53 | P.PN ---
Subjective Date of Service: 04/06/19 Chief Complaint: Chest Pain Subjective: No new changes, Tolerating diet (seen today , improving RLQ pain having bowel movt now) Review of Systems 10-point ROS is otherwise unremarkable Physical Examination - Vital Signs Temperature: 97 F Blood Pressure: 97/44 Pulse: 96 Respirations: 18 Pulse Ox (%): 100 - Physical Exam General: Alert, Oriented x3 HEENT: Atraumatic, Normocephalic Neck: Supple, JVD not distended Respiratory: Clear to auscultation bilaterally, Normal air movement Cardiovascular: Normal pulses, Regular rate/rhythm, Normal S1 S2 Gastrointestinal: Normal bowel sounds, Soft and benign, Tenderness (RLQ) Musculoskeletal: No clubbing, No swelling Neurological: Normal gait, Normal speech - Studies Medications List Reviewed: Yes Assessment & Plan - Problems (Diagnosis) (1) NSTEMI (non-ST elevated myocardial infarction) Current Visit: Yes Status: Acute (2) Unstable angina Current Visit: Yes Status: Acute (3) GERD (gastroesophageal reflux disease) Current Visit: Yes Status: Chronic Discharge Plan: Home Plan to discharge in: 48 Hours Physician Review: Patient Assessed, Agree with Above Assessment and Plan Physician Review Additional Text: # Intraabdominal bleed- likely due to cpl of cath - c/w aspirin and plavix - h/h trending down but no active bleeding on CTA abd lynsey from iliac artery - PRBC offered but patient declining now , want s to wait until - c/w IVF ns , bp stable -CT shows RLQ and pelvis hematoma # Anemia of acute blood loss- refusing prbc -follow iron profile - will start IV iron loading # NSTEMI -s/p LAD stent placement - no recurrent of symptoms # Syncope -resolved - due to intravascular depletion from abdominal bleed -c/w IVF
[2019-04-06] MEDS ORDERED: NA CHLORIDE 0.9% 250 ML IV SCH (10:00)
[2019-04-06] MEDS: SOD FERRIC GLUC COMPLX/SUCROSE 250 MG in NA CHLORIDE 0.9% 250 ML IV SCH (10:52)
[2019-04-06 11:07] LABS: Ferritin 31.2 ng/mL (8-388)
[2019-04-06] MEDS ORDERED: NA CHLORIDE 0.9% 100 ML ONE (14:19)
[2019-04-06] MEDS: ATORVASTATIN 80 MG TAB PO SCH (20:05)
[2019-04-06 22:26] VITALS: O2SAT 99
[2019-04-07] MEDS: D5 0.9 NS 1,000 ML IV SCH (00:22)
[2019-04-07 06:19] LABS: Absolute Lymphocytes (CBC) 2.2 K/uL (0.7-4.9); Basophils % 0.9 % (0-1.3); Hematocrit 27.6 % (36.0-45.0); Lymphocytes % 23.3 % (15.3-44.8); MPV 8.9 fL (7.6-11.3); RBC Red Blood Cell Count 3.27 M/uL (3.86-4.86)
[2019-04-07] MEDS: SOD FERRIC GLUC COMPLX/SUCROSE 250 MG in NA CHLORIDE 0.9% 250 ML IV SCH (09:00)
[2019-04-07 10:28] VITALS: BP 120/55; TEMP 99.4
--- NOTE | 2019-04-07 10:30 | RAD REPORT ---
EXAM DESCRIPTION: CT - Abdomen Pelvis Wo Contrast - 04/07/2019 10:09 am CLINICAL HISTORY: Abdominal pain /pelvic hematoma COMPARISON: April 05, 2019 TECHNIQUE: Computed axial tomography of the abdomen and pelvis was obtained. IV and oral contrast we re not requested. All CT scans are performed using dose optimization technique as appropriate and may include automated exposure control or mA/KV adjustment according to patient size. FINDINGS: The evaluation of solid organs, vessels and bowel is limited secondary to the lack of con trast administration. The pelvic hematoma is mildly diminished in size since the prior examination. It compresses the bladd er. Sclerotic and lucent areas throughout the bones without significant change from a 2010 cat scan IMPRESSION: Mild decrease in the size of the pelvic hematoma
[2019-04-07] MEDS: METOPROLOL TAR 25 MG TAB PO SCH (11:00)
[2019-04-07] MEDS: ASPIRIN 81 MG CHEWABLE TABLET PO SCH (11:00)
[2019-04-07] MEDS: PANTOPRAZOLE 40MG TABLET PO SCH (11:00)
[2019-04-07] MEDS: DOCOSAHEXANOIC AC/EPA 1000 MG PO SCH (11:06)
--- NOTE | 2019-04-07 11:49 | EKG ---
Test Date: 2019-04-05 Test Time: 10:01:48 Thermal Cutter Helper: ELLYN MEASUREMENT RESULTS: Intervals: Rate: 82 TX: 202 QRSD: 78 QT: 428 QTc: 500 [place]: P: 66 TX: 202 QRS: -54 T: 98 INTERPRETIVE STATEMENTS: Sinus rhythm with premature atrial complexes Left axis deviation Inferior infarct, age undetermined T wave abnormality, consider anterolateral ischemia Abnormal ECG Compared to ECG 04/05/2019 08:22:51 Atrial premature complex(es) now present First degree AV block no longer present Prolonged QT interval no longer present Myocardial infarct finding still present T-wave abnormality still present Possible ischemia still present Electronically Signed On 04-07-19 11:42:46 TRANSPORTATION INSPECTOR by Clifton Ospina
--- NOTE | 2019-04-07 11:49 | EKG ---
Test Date: 2019-04-05 Test Time: 08:22:51 Doughnut Maker: JIMENEZ MEASUREMENT RESULTS: Intervals: Rate: 80 GA: 234 QRSD: 86 QT: 446 QTc: 514 [place]: P: 54 GA: 234 QRS: -35 T: 81 INTERPRETIVE STATEMENTS: Sinus rhythm with 1st degree AV block Left axis deviation Inferior infarct, age undetermined T wave abnormality, consider anterior ischemia Prolonged QT Abnormal ECG Compared to ECG 04/04/2019 09:09:06 First degree AV block now present Myocardial infarct finding now present T-wave abnormality still present Possible ischemia still present Electronically Signed On 04-07-19 11:42:48 COVER MARKER by Clifton Ospina
--- NOTE | 2019-04-07 11:53 | P.DS ---
Admission Date: 04/03/19 Discharge Date: 04/07/19 Disposition: ROUTINE DISCHARGE Discharge Condition: GOOD Reason for Admission: Chest Pain - Problems (1) NSTEMI (non-ST elevated myocardial infarction) Current Visit: Yes Status: Acute (2) Unstable angina Current Visit: Yes Status: Acute (3) GERD (gastroesophageal reflux disease) Current Visit: Yes Status: Chronic Brief History of Present Illness: Patient with past medical history of GERD admitted for chest pain and elevated troponin. Hospital Course: Patient on admission was noted with elevated troponin. Chest pain resolved with p.r.n. sublingual nitro. Patient was evaluated by Cardiology and underwent a cardiac catheterization with PCI x1 stent placement. Postprocedure She developed syncope with orthostasis and new onset of low abdominal pain. She was resuscitated with IVF NS boluses. CT shows right intra-abdominal hematoma extending to the pelvis and compressing on the bladder. Anticoagulation including Plavix was held. Follow-up CT with angiogram shows no bleeding from the iliac arteries. Patient continued to be tachycardic with persistent low BP requiring PRBC 1 unit transfusion leading to improvement in vitals. she is ambulating well now without any orthostasis at this time. Her h/h improved from 7.8 Pretransfusion to 9.2 and continue to increase to 9.6 today. She has been started on IV iron replacement as well as p.o. at discharge. Follow-up CT scan today shows decrease in size of previous hematoma. Patient will be discharged home on aspirin on low dose metoprolol. She will follow with Cardiology within the week to consider startying Plavix if still improving hemoglobin. Vital Signs/Physical Exam: Temp Pulse Resp BP Pulse Ox 99.4 F 83 20 120/55 L 100 04/07/19 08:00 04/07/19 11:00 04/07/19 08:00 04/07/19 11:00 04/07/19 08:00 General: Alert, In no apparent distress, Oriented x3 HEENT: Atraumatic, Normocephalic, PERRLA Neck: Supple, 2+ carotid pulse no bruit Respiratory: Clear to auscultation bilaterally, Normal air movement Cardiovascular: No edema, Normal pulses, Regular rate/rhythm Gastrointestinal: Normal bowel sounds, Soft and benign, Tenderness (improving ) Musculoskeletal: No clubbing, No swelling Integumentary: No rashes, No breakdown Neurological: Normal gait, Normal speech Laboratory Data at Discharge: WBC 9.4 K/uL (4.3-10.9) 04/07/19 06:01 Hgb 9.6 g/dL (12.0-15.0) L 04/07/19 06:01 Hct 27.6 % (36.0-45.0) L 04/07/19 06:01 Plt Count 200 K/uL (152-406) 04/07/19 06:01 PT 13.3 SECONDS (9.5-12.5) H 04/05/19 12:50 INR 1.13 04/05/19 12:50 APTT 21.4 SECONDS (24.3-36.9) L 04/05/19 12:50 Sodium 134 mmol/L (136-145) L 04/05/19 05:43 Potassium 4.1 mmol/L (3.5-5.1) 04/05/19 05:43 BUN 9 mg/dL (7-18) 04/05/19 05:43 Creatinine 0.68 mg/dL (0.55-1.3) 04/05/19 05:43 Glucose 113 mg/dL (74-106) H 04/05/19 05:43 Phosphorus 3.5 mg/dL (2.5-4.9) 04/04/19 06:00 Magnesium 1.9 mg/dL (1.8-2.4) 04/04/19 06:00 Total Bilirubin 0.5 mg/dL (0.2-1.0) 04/05/19 05:43 AST 19 U/L (15-37) 04/05/19 05:43 ALT 27 U/L (12-78) 04/05/19 05:43 Alkaline Phosphatase 106 U/L (45-117) 04/05/19 05:43 Troponin I 2.75 ng/mL (0.0-0.045) H* 04/05/19 05:43 Triglycerides 114 mg/dL (<150) 04/04/19 06:00 Cholesterol 215 mg/dL (<200) H 04/04/19 06:00 HDL Cholesterol 55 mg/dL (40-60) 04/04/19 06:00 Cholesterol/HDL Ratio 3.91 04/04/19 06:00 Home Medications: Aspirin Chewable [Aspirin Chewable*] 81 mg PO DAILY 04/04/19 Docosahexanoic AC/Epa [Fish Oil 1,000 MG*] 1,000 mg PO BID 04/04/19 Omeprazole Magnesium [Prilosec Otc] 20 mg PO DAILY 04/04/19 Atorvastatin Calcium [Lipitor] 40 mg PO BEDTIME #30 tablet 04/07/19 Ferrous Gluconate [Fergon] 240 mg PO BID #60 tablet 04/07/19 Metoprolol Tartrate [Lopressor*] 12.5 mg PO BID #30 tab 04/07/19 New Medications: Atorvastatin Calcium [Lipitor] 40 mg PO BEDTIME #30 tablet Ferrous Gluconate [Fergon] 240 mg PO BID #60 tablet Metoprolol Tartrate [Lopressor*] 12.5 mg PO BID #30 tab Diet: Regular Activity: No lifting more than 10 lbs Followup: Clifton Ospina MD [ACTIVE - CAN ADMIT] - 2-3 Days
--- NOTE | 2019-04-08 15:32 | PN ---
Date of Progress Note: 04/07/2019 Ms. Giang was admitted to the hospital with unstable angina, positive troponin, underwent a cathete rization with a stent of her LAD. The day after that, while she was straining, she busted her Angio- Seal, had a retroperitoneal hematoma. Yesterday, she received blood transfusion. Her hemoglobin tod ay is 9.6. She feels great. She has a normal rhythm. There is no hematoma that is obvious on exami nation. Her hematoma was retroperitoneal. Last CT scan showed no extravasation of blood and her hem atoma size is stable. I will send her home today on aspirin, Plavix, Lipitor, bisoprolol, and she wi ll see me in the office in the next 2 weeks. She will be also on iron, Theragran-M once a day and a couple of weeks. I will repeat blood work to include CBC and BMP, and we will follow her along. DUGLAS Voice ID: [id number] Report ID: [id number]
--- NOTE | 2019-04-08 15:47 | PN ---
Date of Progress Note: 04/06/2019 Ms. Giang had an episode of retroperitoneal hematoma the day after her catheterization and stent of her LAD. Her last hemoglobin was 7.8. She has had sinus tachycardia with moving around, but no sym ptoms otherwise. No syncope. Blood pressure is fairly adequate. I think it would be reasonable to give Ms. Giang a blood transfusion. I will discuss that with her and with her primary care. WILLIE/CROW Voice ID: [id number] Report ID: [id number]
== END 2019-04-07 13:41 | disposition home or self-care (01) | DRG 249 ==
LOC: ER 19:43 → ERHOLD 22:39 → 2ND 04-04 00:08 → 3RD-ICU 04-05 10:34 → 2ND 04-06 22:10
PROVIDERS: ADMIT Family Medicine; ATTEND Internal Medicine
PROC: 02H03DZ Insertion of Intraluminal Device into Coronary Artery, One Artery, Percutaneous Approach (ICD-10-PCS; principal; 2019-04-04)
PROC: B201YZZ Plain Radiography of Multiple Coronary Arteries using Other Contrast (ICD-10-PCS; 2019-04-04)
DX: I21.4 Non-ST elevation (NSTEMI) myocardial infarction (principal); D62 Acute posthemorrhagic anemia; L76.02 Intraoperative hemorrhage and hematoma of skin and subcutaneous tissue complicating other procedure; R55 Syncope and collapse; I25.110 Atherosclerotic heart disease of native coronary artery with unstable angina pectoris; E78.5 Hyperlipidemia, unspecified; K21.9 Gastro-esophageal reflux disease without esophagitis; I10 Essential (primary) hypertension; K58.9 Irritable bowel syndrome, unspecified; Y84.0 Cardiac catheterization as the cause of abnormal reaction of the patient, or of later complication, without mention of misadventure at the time of the procedure; R00.0 Tachycardia, unspecified; Z85.6 Personal history of leukemia
CPT/HCPCS: 36415; 71045; 74174; 74176; 80048; 80053; 80061; 80076; 81003; 82553; 82728; 82805; 82947; 83036; 83540; 83735; 83880; 84100; 84466; 84484; 85014; 85018; 85025; 85347; 85610; 85730; 86850; 86900; 86901; 93005; 93306; 93454; 94760; 96372; 96374; 96375; 99285; C1725; C1760; C1877; C1893; C9600; J0583; J1650; J2250; J2270; J2405; J2916; J2930; J3010; J7030; J7040; J7042; J7512; P9016; Q9967

== ENCOUNTER 2022-02-04 11:00 | Day surgery (SDC) | payer OTHER ==
--- NOTE | 2022-02-03 11:19 | RAD REPORT ---
EXAM DESCRIPTION: RAD - Chest Pa And Lat (2 Views) - 02/03/2022 10:49 am CLINICAL HISTORY: pre procedure COMPARISON: Chest Single View dated 04/03/2019; Chest Pa And Lat (2 Views) dated 08/16/2017; Chest Pa And Lat (2 Views) dated 06/10/2016; CHEST SINGLE VIEW dated 08/24/2013 FINDINGS: Lines: None. Lungs: No evidence of edema or pneumonia. Pleural: No significant pleural effusions or pneumothorax. Cardiac: The heart size is within normal limits. Mediastinum: Within normal limits. Bones: No acute fractures. Other: None IMPRESSION: No acute cardiopulmonary disease. Emphysema.
[2022-02-03 11:51] LABS: Absolute Lymphocytes (CBC) 1.5 K/uL (0.7-4.9); Hematocrit 43.6 % (36.0-45.0); Lymphocytes % 25.1 % (15.3-44.8); MCV 84.3 fL (80-100); MPV 8.3 fL (7.6-11.3); RBC Red Blood Cell Count 5.17 M/uL (3.86-4.86)
[2022-02-03 11:57] LABS: Protime INR 1.06
[2022-02-03 12:15] LABS: Potassium 3.7 mmol/L (3.5-5.1)
[2022-02-04] MEDS ORDERED: LIDOCAINE 1% 20 ML MDV ONE (11:18)
[2022-02-04] MEDS ORDERED: HEPA 1000U/500MLS 2,000 UNIT/1,000 ML BAG IV ONE (11:18)
[2022-02-04] MEDS ORDERED: HEPARIN 5000 UNIT/ML 1 ML VIAL ONE (11:19)
[2022-02-04] MEDS ORDERED: VERAPAMIL HCL 10 MG/4 ML VIAL IV ONE (11:19)
[2022-02-04] MEDS ORDERED: FENTANYL CITR 100 MCG/2 ML ONE (11:19)
[2022-02-04] MEDS ORDERED: MIDAZOLAM HCL 2 MG/2 ML INJ ONE (11:19)
[2022-02-04] MEDS ORDERED: HEPARIN 10,000 UNIT/10 ML VIAL IV ONE (11:20)
[2022-02-04] MEDS ORDERED: TICAGRELOR 90 MG TABLET PO ONE (11:20)
[2022-02-04] MEDS ORDERED: CLOPIDOGREL 75 MG TABLET ONE (11:20)
[2022-02-04] MEDS ORDERED: ASPIRIN 325 MG TAB ONE (11:20)
[2022-02-04] MEDS ORDERED: NITROGLYCERIN 100 MCG/ML SYR (for cath lab use only) IV ONE (11:21)
[2022-02-04] MEDS ORDERED: NITROGLYCERIN/D5W 25 MG/250 ML BTL IV ONE (11:21)
[2022-02-04] MEDS ORDERED: ATROPINE SULF 1 MG/10 ML SYR IV ONE (11:21)
[2022-02-04] MEDS ORDERED: NA CHLORIDE 0.9% 500 ML ONE (12:08)
[2022-02-04 12:41] VITALS: O2SAT 100
[2022-02-04 15:50] VITALS: BP 102/51
--- NOTE | 2022-02-05 02:32 | OP ---
Date of Procedure: 02/04/2022 Surgeon: LOLY LIPSCOMB Procedures Performed: 1.Selective coronary angiogram. 2.Left heart catheterization. Indication: Typical chest pain, suggestive of unstable angina. Access: Right radial artery 6-Thai, closed with TR band. Complications: None. Bleeding: Less than 10 mL. Anesthesia: Total sedation time is up to 20 minutes. Description Of Procedure: After risks, benefits, alternatives were explained, patient agreed to proc edure and signed informed consent. Patient was brought into the cardiac catheterization laboratory, prepped and draped in the usual sterile fashion. Then, I accessed right radial artery using [employer] c micropuncture kit and a 6-Thai Slender sheath and took 5-Thai [place] 4 catheter in the aortic ro ot over a J-wire. I engaged left main and right coronary artery, took standard views, and then over the wire, the catheter was pushed into the LV and LVEDP was measured. Pullback not recorded any grad ient. I removed the catheter and sheath, placed TR band with good hemostasis. Findings: 1.Left main; large and normal. 2.LAD; head is large and normal. Patent mid LAD stent. No significant disease of the diagonal bran ches. 3.Left circumflex, moderate-size vessel, 20% proximal stenosis and minor irregularities throughout t he normal OM branches. 4.RCA; large and dominant with proximal 30% stenosis, but still very large lumen and then in the mid portion, it is aneurysmal with slightly slow flow and then luminal irregularities of the PDA and PLB. 5.Normal LVEDP at 5 mmHg. Conclusion: 1.Patent mid LAD stent. 2.Mild coronary artery disease, otherwise, nonobstructive. 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 Plan: To start beta-jie and if she is on one, to titrate it up, and follow this as an outpatient . /LEWISL Voice ID: [id number] Report ID: [id number]
== END 2022-02-04 15:57 | disposition home or self-care (01) ==
LOC: CCL 11:00
PROVIDERS: ATTEND Internal Medicine
DX: I25.110 Atherosclerotic heart disease of native coronary artery with unstable angina pectoris (principal); I25.41 Coronary artery aneurysm; I10 Essential (primary) hypertension; E78.5 Hyperlipidemia, unspecified; I25.2 Old myocardial infarction; K21.9 Gastro-esophageal reflux disease without esophagitis; D64.9 Anemia, unspecified; Z95.5 Presence of coronary angioplasty implant and graft; Z79.82 Long term (current) use of aspirin; Z79.899 Other long term (current) drug therapy; Z88.0 Allergy status to penicillin; Z88.1 Allergy status to other antibiotic agents; Z88.3 Allergy status to other anti-infective agents; Z88.8 Allergy status to other drugs, medicaments and biological substances; Z91.041 Radiographic dye allergy status
CPT/HCPCS: 85025; 80048; 36415; 85610; 85730; 71046; 93458; 76937; C1893; Q9966; J1644 ×2; J2250; J3010; J7040

== ENCOUNTER 2023-06-22 17:04 | Observation (INO) | payer OTHER ==
[2023-06-22 18:13] LABS: Absolute Eosinophils 0.1 K/uL (0-0.5); Absolute Lymphocytes (CBC) 1.9 K/uL (0.7-4.9); Absolute Monocytes 0.5 K/uL (0.1-1.3); Basophils % 0.8 % (0-1.3); Eosinophils % 2.2 % (0-4.4); Hemoglobin 13.5 g/dL (12.0-15.0); Lymphocytes % 33.8 % (15.3-44.8); MCH 29.3 pg (27.0-35.0); MCHC 34.7 g/dL (32.0-36.0); MCV 84.3 fL (80-100); MPV 8.8 fL (7.6-11.3); Monocytes % 9.2 % (3.3-12.3); Nucleated Red Blood Cells % 0.1 % (0-0); Platelets 174 thou/uL (152-406); RBC Red Blood Cell Count 4.63 M/uL (3.86-4.86); Red Cell Distribution Width 14.1 % (12.1-15.2)
[2023-06-22 18:30] LABS: Albumin 3.8 g/dL (3.4-5.0); Albumin/Globulin Ratio 1.1 (1.1-1.8); Anion Gap 9.4 mEq/L (5.0-15.0); Bilirubin Direct 0.2 mg/dL (0-0.2); Bilirubin Indirect, Calculated 0.4 mg/dL (0.2-0.8); Bilirubin Total 0.6 mg/dL (0.2-1.0); Globulin 3.4 g/dL (2.3-3.5); Potassium 3.4 mEq/L (3.5-5.1); Protein, Total 7.2 g/dL (6.4-8.2); Troponin High Sensitivity 29.9 pg/mL (<58.9)
--- NOTE | 2023-06-22 18:52 | RAD REPORT ---
EXAM DESCRIPTION: RAD - Shoulder Left 2 View - 06/22/2023 6:07 pm CLINICAL HISTORY: PAIN COMPARISON: <Comparisons> FINDINGS: Mild AC joint urgently is present. No fracture or dislocation.
--- NOTE | 2023-06-22 18:52 | RAD REPORT ---
EXAM DESCRIPTION: RAD - Chest Single View - 06/22/2023 6:07 pm CLINICAL HISTORY: CHEST PAIN Chest pain. COMPARISON: <Comparisons> FINDINGS: Portable technique limits examination quality. The lungs are emphysematous but grossly clear. The heart is normal in size. No displaced fractures. IMPRESSION: COPD.
--- NOTE | 2023-06-22 20:28 | ER ---
Nurse's Notes [facility] Name: Yani Giang Age: 73 yrs Sex: Female : 1950 Arrival Date: 06/22/2023 Time: 17:04 Bed 17 Private MD: Diagnosis: Chest pain, unspecified Presentation: 06/21 17:17 Chief complaint: Patient states: left arm pain radiating to back and left shoulder iw since Monday , previous hx of VA. Coronavirus screen: At this time, the client does not indicate any symptoms associated with coronavirus-19. Ebola Screen: Patient negative for fever greater than or equal to 101.5 degrees Fahrenheit, and additional compatible Ebola Virus Disease symptoms Patient denies exposure to infectious person. Patient denies travel to an Ebola-affected area in the 21 days before illness onset. No symptoms or risks identified at this time. Risk Assessment: Do you want to hurt yourself or someone else? Patient reports no desire to harm self or others. Onset of symptoms was June 20, 2023. 17:17 Method Of Arrival: Ambulatory iw 17:17 Acuity: CHING 3 iw 23:16 Initial Sepsis Screen: Does the patient meet any 2 criteria? No. Patient's initial tl4 sepsis screen is negative. Does the patient have a suspected source of infection? No. Patient's initial sepsis screen is negative. Historical: - Allergies: 17:18 Augmentin; iw 17:18 Azithromycin; iw 17:18 Bactrim; iw 17:18 Betadine; iw 17:18 Darvocet-N 100; iw 17:18 mecaptopurine; iw 17:18 meloxicam; iw 17:18 Naproxen; iw 17:18 Red Dye; iw 17:18 Codeine; iw 17:18 Crestor; iw 17:18 Ciprofloxacin; iw 17:18 Celebrex; iw 17:18 Ceclor; iw 17:18 Levaquin; iw 17:18 TETRACYCLINES; iw 17:18 Vytorin 10-10; iw 17:18 Tramadol HCl; iw 17:18 WelChol; iw 17:18 Talwin; iw - Home Meds: 23:16 aspirin 81 mg Oral tablet,chewable 1 tab daily [Active]; atorvastatin 80 mg oral tablet tl4 1 tab daily [Active]; metoprolol succinate 25 mg oral Tablet, Extended Release 24 hr 1 tab 2 times per day [Active]; pantoprazole 40 mg oral tablet, delayed release (enteric coated) 1 tab daily [Active]; Fish Oil 1,000 mg (120 mg-180 mg) oral capsule 1 cap daily [Active]; - PMHx: 17:18 GERD; Hepatitis; ibs; Leukemia T cell ALL; RHEUMATIC FEVER; Myocardial infarction; iw - PSHx: 17:18 stents; iw 17:20 left shoulder; rectal mass removed; tubal; iw - Immunization history:: Adult Immunizations not up to date, Flu vaccine is not up to date. - Social history:: Smoking status: Patient denies any tobacco usage or history of. - Family history:: not pertinent. Screenin:[address] [facility] ED Fall Risk Assessment (Adult) History of falling in the last 3 months, tl4 including since admission No falls in past 3 months (0 pts) Confusion or Disorientation No (0 pts) Intoxicated or Sedated No (0 pts) Impaired Gait No (0 pts) Mobility Assist Device Used No (0 pt) Altered Elimination No (0 pt) Score/Fall Risk Level 0 - 2 = Low Risk Oriented to surroundings, Maintained a safe environment, Educated pt \T\ family on fall prevention, incl call for assistance when getting out of bed, Assessed \T\ reinforced patient's understanding of fall precautions, Hourly rounding (assess needs \T\ fall precautionary measures) done, Used ambulatory aids as needed (educated on \T\ assisted with), Used gait belt as appropriate. Abuse screen: Denies threats or abuse. Denies injuries from another. Nutritional screening: No deficits noted. Tuberculosis screening: No symptoms or risk factors identified. Assessment: 18:05 General: Appears in no apparent distress. Behavior is calm, cooperative. Pain: tl4 Complains of pain in chest Pain does not radiate. Pain began 1 day ago. Neuro: No deficits noted. Level of Consciousness is awake, alert, obeys commands, Oriented to person, place, time, situation, Gait is steady, Speech is normal, Facial symmetry appears normal, Denies weakness difficulty swallowing, numbness headache. Cardiovascular: Reports chest pain, left side axilla Denies diaphoresis, fatigue, lightheadedness, nausea, palpitations, syncope, Rhythm is sinus rhythm. Respiratory: No deficits noted. Airway is patent Respiratory effort is even, unlabored, Respiratory pattern is regular, symmetrical, Breath sounds are clear bilaterally. GI: No deficits noted. No signs and/or symptoms were reported involving the gastrointestinal system. : No deficits noted. No signs and/or symptoms were reported regarding the genitourinary system. EENT: No deficits noted. No signs and/or symptoms were reported regarding the EENT system. Derm: No deficits noted. No signs and/or symptoms reported regarding the dermatologic system. 19:03 Reassessment: No changes from previously documented assessment. Patient and/or family tl4 updated on plan of care and expected duration. Pain level reassessed. Patient is alert, oriented x 3, equal unlabored respirations, skin warm/dry/pink. 20:14 Reassessment: No changes from previously documented assessment. Patient and/or family tl4 updated on plan of care and expected duration. Pain level reassessed. Patient is alert, oriented x 3, equal unlabored respirations, skin warm/dry/pink. 21:03 Reassessment: No changes from previously documented assessment. Patient and/or family tl4 updated on plan of care and expected duration. Pain level reassessed. Patient is alert, oriented x 3, equal unlabored respirations, skin warm/dry/pink. 22:12 Reassessment: No changes from previously documented assessment. Patient and/or family tl4 updated on plan of care and expected duration. Pain level reassessed. Patient is alert, oriented x 3, equal unlabored respirations, skin warm/dry/pink. 23:04 Reassessment: No changes from previously documented assessment. Patient and/or family tl4 updated on plan of care and expected duration. Pain level reassessed. Patient is alert, oriented x 3, equal unlabored respirations, skin warm/dry/pink. 23:44 Reassessment: No changes from previously documented assessment. Patient and/or family tl4 updated on plan of care and expected duration. Pain level reassessed. Patient is alert, oriented x 3, equal unlabored respirations, skin warm/dry/pink. pt admitted to the floor. Vital Signs: 17:17 BP 176 / 98; Pulse 57; Resp 16; Pulse Ox 100% on R/A; iw 19:35 BP 141 / 81; Pulse 55; Resp 14; Pulse Ox 99% on R/A; Pain 8/10; tl4 20:00 BP 153 / 73; Pulse 55; Resp 21; Pulse Ox 100% on R/A; Pain 0/10; tl4 21:00 BP 151 / 82; Pulse 52; Resp 13; Pulse Ox 99% ; tl4 22:00 BP 138 / 83; Pulse 56; Resp 14; Pulse Ox 98% on R/A; tl4 23:00 BP 152 / 67; Pulse 50; Resp 16; Temp 98.2(O); Pulse Ox 99% on R/A; Pain 0/10; tl4 19:35 Pain Scale: Adult tl4 20:00 Pain Scale: Adult tl4 23:00 Pain Scale: Adult tl4 Vitals: 19:35 Cardiac Rhythm Assessment Regular Sinus rhythm. tl4 [place] Coma Score: 19:35 Eye Response: spontaneous(4). Motor Response: obeys commands(6). Verbal Response: tl4 oriented(5). Total: 15. ED Course: 17:05 Patient arrived in ED. rg4 17:12 Lester Pino MD is Attending Physician. rt 17:18 Triage completed. iw 17:19 Arm band placed on. iw 17:48 Enrrique Lema, RN is Primary Nurse. tl4 17:55 Initial lab(s) drawn, by pr, sent to lab. Inserted saline lock: 20 gauge in right aw1 antecubital area, using aseptic technique. 17:58 Basic Metabolic Panel Sent. aw1 17:58 CBC with Diff Sent. aw1 17:58 LFT's Sent. aw1 17:58 Magnesium Sent. aw1 17:58 Troponin HS Sent. aw1 18:09 XRAY Chest (1 view) In Process Unspecified. EDMS 18:09 Shoulder Left (2 View) XRAY In Process Unspecified. EDMS 20:27 Doe Bryant MD is Hospitalizing Provider. rt 21:19 Patient has correct armband on for positive identification. Placed in gown. Bed in low tl4 position. Call light in reach. Side rails up X2. Provided Education on: ed process. Client placed on continuous cardiac and pulse oximetry monitoring. NIBP monitoring applied. coding specialist home health on. Door closed. Noise minimized. Moved to private room. Warm blanket given. Pillow given. 23:14 No provider procedures requiring assistance completed. Patient admitted, IV remains in tl4 place. Patient maintains SpO2 saturation greater than 95% on room air. 23:15 Assisted to bathroom. tl4 Administered Medications: No medications were administered Medication: 19:35 VIS not applicable for this client. tl4 Outcome: 20:27 Decision to Hospitalize by Provider. rt 23:43 Admitted to Med/surg accompanied by tech, via wheelchair, room 204, with chart, tl4 23:43 Condition: stable 23:43 Instructed on the need for admit, 23:45 Patient left the ED. tl4 Signatures: Dispatcher [employer] Lucretia Nunez, RN Zena Velasquez rg4 Lester Pino MD MD rt Kizzy Salazar aw1 Enrrique Lema RN RN tl4
--- NOTE | 2023-06-22 20:28 | EDPHYS ---
Physician Documentation [facility] Name: Yani Giang Age: 73 yrs Sex: Female : 1950 Arrival Date: 06/22/2023 Time: 17:04 Bed 17 Private MD: ED Physician Lester Pino HPI: 06/21 20:47 This 73 yrs old Female presents to ER via Ambulatory with complaints of Chest Pain, Arm rt Pain. 20:47 Patient presents to the ED with an intermittent left shoulder to left chest pain rt starting on Monday, worsening today. Patient states that she is concerned as this is similar symptoms to when she had a previous [place]. Denies other acute complaints at this time, symptoms are moderate in severity, no other aggravating or alleviating factors.. Historical: - Allergies: 17:18 Augmentin; iw 17:18 Azithromycin; iw 17:18 Bactrim; iw 17:18 Betadine; iw 17:18 Darvocet-N 100; iw 17:18 mecaptopurine; iw 17:18 meloxicam; iw 17:18 Naproxen; iw 17:18 Red Dye; iw 17:18 Codeine; iw 17:18 Crestor; iw 17:18 Ciprofloxacin; iw 17:18 Celebrex; iw 17:18 Ceclor; iw 17:18 Levaquin; iw 17:18 TETRACYCLINES; iw 17:18 Vytorin 10-10; iw 17:18 Tramadol HCl; iw 17:18 WelChol; iw 17:18 Talwin; iw - Home Meds: 23:16 aspirin 81 mg Oral tablet,chewable 1 tab daily [Active]; atorvastatin 80 mg oral tablet tl4 1 tab daily [Active]; metoprolol succinate 25 mg oral Tablet, Extended Release 24 hr 1 tab 2 times per day [Active]; pantoprazole 40 mg oral tablet, delayed release (enteric coated) 1 tab daily [Active]; Fish Oil 1,000 mg (120 mg-180 mg) oral capsule 1 cap daily [Active]; - PMHx: 17:18 GERD; Hepatitis; ibs; Leukemia T cell ALL; RHEUMATIC FEVER; Myocardial infarction; iw - PSHx: 17:18 stents; iw 17:20 left shoulder; rectal mass removed; tubal; iw - Immunization history:: Adult Immunizations not up to date, Flu vaccine is not up to date. - Social history:: Smoking status: Patient denies any tobacco usage or history of. - Family history:: not pertinent. ROS: 20:47 Constitutional: Negative for fever, chills, and weight loss, Respiratory: Negative for rt shortness of breath, cough, wheezing, and pleuritic chest pain, Abdomen/GI: Negative for abdominal pain, nausea, vomiting, diarrhea, and constipation, Skin: Negative for injury, rash, and discoloration, Neuro: Negative for headache, weakness, numbness, tingling, and seizure, 20:47 Cardiovascular: Positive for chest pain, Negative for edema, 20:47 : Positive for 20:47 MS/extremity: Positive for pain, Negative for injury or acute deformity, Exam: 20:47 Constitutional: This is a well developed, well nourished patient who is awake, alert, rt and in no acute distress. Head/Face: Normocephalic, atraumatic. Chest/axilla: Normal chest wall appearance and motion. Nontender with no deformity. No lesions are appreciated. Cardiovascular: Regular rate and rhythm with a normal S1 and S2. No gallops, murmurs, or rubs. Normal PMI, no JVD. No pulse deficits. Respiratory: Lungs have equal breath sounds bilaterally, clear to auscultation and percussion. No rales, rhonchi or wheezes noted. No increased work of breathing, no retractions or nasal flaring. Abdomen/GI: Soft, non-tender, with normal bowel sounds. No distension or tympany. No guarding or rebound. No evidence of tenderness throughout. Skin: Warm, dry with normal turgor. Normal color with no rashes, no lesions, and no evidence of cellulitis. MS/ Extremity: Pulses equal, no cyanosis. Neurovascular intact. Full, normal range of motion. Neuro: Awake and alert, GCS 15, oriented to person, place, time, and situation. Cranial nerves II-XII grossly intact. Motor strength 5/5 in all extremities. Sensory grossly intact. Cerebellar exam normal. Normal gait. 20:47 ECG was reviewed by the Attending Physician. Vital Signs: 17:17 BP 176 / 98; Pulse 57; Resp 16; Pulse Ox 100% on R/A; iw 19:35 BP 141 / 81; Pulse 55; Resp 14; Pulse Ox 99% on R/A; Pain 8/10; tl4 20:00 BP 153 / 73; Pulse 55; Resp 21; Pulse Ox 100% on R/A; Pain 0/10; tl4 21:00 BP 151 / 82; Pulse 52; Resp 13; Pulse Ox 99% ; tl4 22:00 BP 138 / 83; Pulse 56; Resp 14; Pulse Ox 98% on R/A; tl4 23:00 BP 152 / 67; Pulse 50; Resp 16; Temp 98.2(O); Pulse Ox 99% on R/A; Pain 0/10; tl4 19:35 Pain Scale: Adult tl4 20:00 Pain Scale: Adult tl4 23:00 Pain Scale: Adult tl4 [place] Coma Score: 19:35 Eye Response: spontaneous(4). Motor Response: obeys commands(6). Verbal Response: tl4 oriented(5). Total: 15. MDM: 17:29 Patient medically screened. rt 20:47 Differential diagnosis: Musculoskeletal pain, pneumonia, pneumothorax, acute coronary rt syndrome. The patient was given aspirin in the Emergency Department. Data reviewed: vital signs, nurses notes, lab test result(s), EKG, radiologic studies. Consideration of Admission/Observation Patient was admitted/placed on observation. Management of patient was discussed with the following: Hospitalist: Agrees to admit. Independent interpretation of the following test(s) in the Emergency Department X-Ray: My interpretation is No pneumonia seen on my interpretation of x-ray images. Test considered but Not performed: CT: Low suspicion for PE, CT angiogram not indicated. Care significantly affected by the following chronic conditions: Coronary artery disease. Counseling: I had a detailed discussion with the patient and/or guardian regarding the historical points, exam findings, and any diagnostic results supporting the discharge/admit diagnosis, lab results, radiology results, the need for further work-up and treatment in the hospital. Response to treatment: the patient's symptoms have markedly improved after treatment. 06/21 17: Order name: Basic Metabolic Panel; Complete Time: 18:32 rt 06/21 17:29 Order name: CBC with Diff; Complete Time: 18:32 rt 06/21 17:29 Order name: LFT's; Complete Time: 18:32 rt 06/21 17:29 Order name: Magnesium; Complete Time: 18:32 rt 06/21 17:29 Order name: Troponin HS; Complete Time: 18:32 rt 06/21 21:02 Order name: Urinalysis w/ reflexes EDMS 06/21 21:02 Order name: CBC with Automated Diff EDMS 06/21 21:02 Order name: CBC with Automated Diff EDMS 06/21 21:02 Order name: Comprehensive Metabolic Panel EDMS 06/21 21:02 Order name: Comprehensive Metabolic Panel EDDC 06/21 21:02 Order name: Lipid Profile EDMS 06/21 21:02 Order name: Lipid Profile EDMS 06/21 21:02 Order name: Troponin High Sensitivity EDMS 06/21 21:02 Order name: Troponin High Sensitivity EDMS 06/21 21:02 Order name: Troponin High Sensitivity EDMS 06/21 21:02 Order name: Troponin High Sensitivity EDDC 06/21 17:29 Order name: XRAY Chest (1 view); Complete Time: 19:02 rt 06/21 17:29 Order name: Shoulder Left (2 View) XRAY; Complete Time: 19:02 rt 06/21 17:29 Order name: EKG; Complete Time: 17:29 rt 06/21 21:02 Order name: CONS Physician Consult EDMS 06/21 17:29 Order name: Cardiac monitoring; Complete Time: 17:49 rt 06/21 17:29 Order name: EKG - Nurse/Tech; Complete Time: 17:31 rt 06/21 17:29 Order name: IV Saline Lock; Complete Time: 17:58 rt 06/21 17:29 Order name: Labs collected and sent; Complete Time: 17:58 rt 06/21 17:29 Order name: O2 Per Protocol; Complete Time: 17:49 rt 06/21 17:29 Order name: O2 Sat Monitoring; Complete Time: 17:49 rt EC:47 Rate is 59 beats/min. Rhythm is regular, 1st Degree Block with No ectopy. Left axis rt deviation noted. VA interval is normal. QRS interval is normal. QT interval is normal. No Q waves. No ST changes noted. Administered Medications: No medications were administered Disposition Summary: 06/22/23 20:27 Hospitalization Ordered Notes: Hospitalization Status: Observation rt Provider: Doe Bryant rt Location: Telemetry/MedSurg (observation) rt Condition: Stable rt Problem: new rt Symptoms: have improved rt Bed/Room Type: Standard rt Room Assignment: 204(06/22/23 22:09) ty Diagnosis - Chest pain, unspecified rt Forms: - Medication Reconciliation Form rt - SBAR form rt - Leadership Thank You Letter rt Signatures: Dispatcher [employer] Lucretia Nunez RN RN iw Svetlana Deleon RN RN Lester Bob MD MD rt Enrrique Lema RN RN 4 Jimbo Wallis ty Corrections: (The following items were deleted from the chart) 20:27 rt ty 21: 21:06 204 ty cg 22: 21:07 cg ty
[2023-06-22] MEDS ORDERED: ONDANSETRON 4 MG/2 ML VIAL IV PRN (20:57)
--- NOTE | 2023-06-22 21:06 | P.HP ---
Certification for Inpatient Patient admitted to: Observation With expected LOS: <2 Midnights Practitioner: I am a practitioner with admitting privileges, knowledge of patient current condition, hospital course, and medical plan of care. Services: Services provided to patient in accordance with Admission requirements found in Title 42 Section 412.3 of the Code of Federal Regulations Patient History Date of Service: 06/22/23 Reason for admission: Chest Pain History of Present Illness: 73-year-old female with past medical history of CAD status post stent placement ,History of T-cell leukemia, tongue left rotator cuff ,, GERD, sleep apnea, IBS, rheumatic fever, who came to ER with chest discomfort associated with left arm pain which has been going on for the last 2 days and has been progressively worsening today and was brought to ER. Denies any shortness of breath. No diaphoresis. No nausea vomiting or diarrhea. No fever or sick contacts. Patient was assessed in the ER and was admitted for further management of chest pain to rule out ACS. Initial EKG as well as initial troponin were negative. Patient follows up with Dr. Roche as outpatient. Allergies acetaminophen [From Darvocet-N 100] Allergy (Verified 04/04/19 02:33) Unknown amoxicillin trihydrate [From Augmentin] Allergy (Verified 04/04/19 02:33) Unknown azithromycin Allergy (Verified 04/04/19 02:33) Unknown colesevelam HCl [From WelChol] Allergy (Verified 04/04/19 02:33) Unknown potassium clavulanate [From Augmentin] Allergy (Verified 04/04/19 02:33) Unknown povidone-iodine [From Betadine] Allergy (Verified 04/04/19 02:33) Unknown propoxyphene napsylate [From Darvocet-N 100] Allergy (Verified 04/04/19 02:33) Unknown rosuvastatin calcium [From Crestor] Allergy (Verified 04/04/19 02:33) Unknown soap [From Betadine] Allergy (Verified 04/04/19 02:33) Unknown tetracycline [Tetracycline] Allergy (Verified 04/04/19 02:33) Unknown levoquin Allergy (Unknown, Uncoded 04/04/19 02:33) Unknown mecaptopurine Allergy (Uncoded 08/24/13 15:15) Unknown tawin Allergy (Uncoded 08/24/13 15:15) Unknown vytorin Allergy (Uncoded 08/24/13 15:15) Unknown Home medications list reviewed: Yes Home Medications: Aspirin Chewable [Aspirin Chewable*] 81 mg PO DAILY 04/04/19 Docosahexanoic AC/Epa [Fish Oil 1,000 MG*] 1,000 mg PO BID 04/04/19 Omeprazole Magnesium [Prilosec Otc] 20 mg PO DAILY 04/04/19 Atorvastatin Calcium [Lipitor] 40 mg PO BEDTIME #30 tablet 04/07/19 Ferrous Gluconate [Fergon] 240 mg PO BID #60 tablet 04/07/19 Metoprolol Tartrate [Lopressor*] 12.5 mg PO BID #30 tab 04/07/19 - Past Medical/Surgical History Diabetic: No Past Medical History: Reviewed- Non-Contributory -: GERD -: IBS -: Sleep apnea -: Rheumatic fever as a child -: T-cell leukemia -: Hepatitis C-cured -: torn Left rotator cuff -: compressed discs in back Past Surgical History: Reviewed- Non-Contributory -: tubal ligation -: uterus suspension - Family History Family History: Reviewed- Non-Contributory - Social History Smoking Status: Never smoker Alcohol use: Yes CD- Drugs: No Caffeine use: Yes Review of Systems 10-point ROS is otherwise unremarkable Physical Examination - Vital Signs Temperature: 98.4 F Blood Pressure: 142/76 Pulse: 52 Respirations: 18 Pulse Ox (%): 98 - Physical Exam General: Alert, In no apparent distress, Oriented x3 HEENT: Atraumatic, Normocephalic Neck: Supple, 2+ carotid pulse no bruit Respiratory: Clear to auscultation bilaterally, Normal air movement Cardiovascular: No edema, Normal pulses, Regular rate/rhythm, Normal S1 S2, No rubs Capillary refill: <2 Seconds Gastrointestinal: Soft and benign, W/out hepatosplenomegaly, No ascites, No tenderness Musculoskeletal: No clubbing, No swelling Integumentary: No rashes, No breakdown Neurological: Normal speech, Normal strength at 5/5 x4 extr, Sensation intact, Cranial nerves 3-12 intact, Normal reflexes 2+ Lymphatics: No axilla or inguinal lymphadenopathy - Studies Laboratory Data (last 24 hrs) 06/22/23 06/22/23 17:55 17:55 WBC 5.60 Hgb 13.5 Hct 39.0 Plt Count 174 Sodium 138 Potassium 3.4 L BUN 9 Creatinine 0.91 Glucose 124 H Magnesium 2.0 Total Bilirubin 0.6 AST 23 ALT 34 Alkaline Phosphatase 163 H Assessment and Plan - Problems (Diagnosis) (1) Unstable angina Current Visit: No Status: Acute Plan: Unstable angina Monitor on telemetry Cardiac enzymes trended Started on aspirin and statin Continue home medications and titrate as needed Cardiology consult Patient has a history of stent placed in LAD as per the patient Last heart cath was negative as per the patient (2) GERD (gastroesophageal reflux disease) Current Visit: No Status: Chronic Plan: Continue home medications and titrate as needed Continue PPI (3) Hypokalemia Current Visit: Yes Status: Acute Plan: Replace potassium Monitor under telemetry (4) Left shoulder pain Current Visit: Yes Status: Acute Plan: Pain control X-ray findings started Monitor closely Discharge Plan: Home Plan to discharge in: 24 Hours - Advance Directives Does patient have a Living Will: No Does patient have a Durable POA for Healthcare: No - Code Status/Comfort Care Code Status: Full Code Time Spent Managing Pts Care (In Minutes): 58
[2023-06-23 00:42] VITALS: BMI 25.4
[2023-06-23 01:18] VITALS: O2SAT 99
[2023-06-23 01:28] LABS: Specific Gravity < 1.005 (1.005-1.030); Urine Bilirubin NEGATIVE (Negative); Urine Blood Negative (Negative); Urine Clarity Clear (Clear); Urine Color Colorless (Yellow); Urine Glucose NEGATIVE (Negative); Urine Ketones NEGATIVE (Negative); Urine Microscopic Reflex YN NO UMIC; Urine Nitrite NEGATIVE (Negative); Urine Protein NEGATIVE (Negative); Urine Urobilinogen Normal (Normal); Urine pH 6.5 (5.0-7.0)
[2023-06-23] MEDS: ACETAMINOPHEN 325 MG TABLET PO PRN (04:03)
[2023-06-23 04:55] LABS: Absolute Eosinophils 0.1 K/uL (0-0.5); Absolute Lymphocytes (CBC) 1.9 K/uL (0.7-4.9); Absolute Monocytes 0.5 K/uL (0.1-1.3); Absolute Neutrophil 2.6 K/uL (1.8-8.0); Basophils % 0.6 % (0-1.3); Eosinophils % 2.6 % (0-4.4); Hemoglobin 13.3 g/dL (12.0-15.0); Lymphocytes % 36.5 % (15.3-44.8); MCH 29.3 pg (27.0-35.0); MCHC 34.9 g/dL (32.0-36.0); MCV 83.9 fL (80-100); MPV 8.9 fL (7.6-11.3); Monocytes % 10.1 % (3.3-12.3); Neutrophils % 50.2 % (41.7-73.7); Platelets 168 thou/uL (152-406); RBC Red Blood Cell Count 4.53 M/uL (3.86-4.86); Red Cell Distribution Width 14.1 % (12.1-15.2)
[2023-06-23 05:22] LABS: Albumin 3.5 g/dL (3.4-5.0); Albumin/Globulin Ratio 1.1 (1.1-1.8); Anion Gap 8.4 mEq/L (5.0-15.0); Bilirubin Total 0.7 mg/dL (0.2-1.0); Globulin 3.2 g/dL (2.3-3.5); Potassium 3.4 mEq/L (3.5-5.1); Protein, Total 6.7 g/dL (6.4-8.2)
[2023-06-23] MEDS: METOPROLOL TAR 25 MG TAB PO SCH (08:51)
[2023-06-23] MEDS: ASPIRIN 81 MG CHEWABLE TABLET PO SCH (08:51)
[2023-06-23] MEDS: PANTOPRAZOLE 40MG TABLET PO SCH (08:51)
[2023-06-23] MEDS: DOCOSAHEXANOIC AC/EPA 1000 MG PO SCH (08:52)
[2023-06-23] MEDS: ENOXAPARIN 40 MG/0.4 ML SQ SCH (08:53)
[2023-06-23] MEDS: POTASSIUM CL SA 10 MEQ TAB PO ONE (08:53)
[2023-06-23] MEDS: FERROUS GLUCONATE 324 MG TAB PO SCH (09:09)
--- NOTE | 2023-06-23 10:37 | P.PN ---
Subjective Date of Service: 06/23/23 Chief Complaint: Chest Pain Subjective: No new changes Review of Systems 10-point ROS is otherwise unremarkable Musculoskeletal: Other (left arm and "bicep" pain and heaviness x 1 week), As per HPI Physical Examination - Vital Signs Temperature: 97.5 F Blood Pressure: 155/70 Pulse: 57 Respirations: 16 Pulse Ox (%): 100 - Physical Exam General: Alert, In no apparent distress, Oriented x3 HEENT: Atraumatic, Normocephalic Neck: Supple, 2+ carotid pulse no bruit Respiratory: Normal air movement Cardiovascular: Normal pulses, Regular rate/rhythm Capillary refill: <2 Seconds Gastrointestinal: Soft and benign Musculoskeletal: No clubbing, No swelling, Other Integumentary: No rashes Neurological: Normal speech, Normal tone External genitalia: Deferred Rectal: Deferred - Studies Laboratory Data (last 24 hrs) 06/22/23 06/22/23 17:55 17:55 WBC 5.60 Hgb 13.5 Hct 39.0 Plt Count 174 Sodium 138 Potassium 3.4 L BUN 9 Creatinine 0.91 Glucose 124 H Magnesium 2.0 Total Bilirubin 0.6 AST 23 ALT 34 Alkaline Phosphatase 163 H Assessment And Plan - Plan Assessment and Plan - Problems (Diagnosis) (1) Unstable angina Current Visit: No Status: Acute Plan: Unstable angina Monitor on telemetry Cardiac enzymes trended Started on aspirin and statin Continue home medications and titrate as needed Cardiology consult Patient has a history of stent placed in LAD as per the patient 04/03/19 Last heart cath was negative as per the patient 02/04/22 (2) GERD (gastroesophageal reflux disease) Current Visit: No Status: Chronic Plan: Continue home medications and titrate as needed Continue PPI (3) Hypokalemia Current Visit: Yes Status: Acute Plan: Replace potassium Monitor under telemetry (4) Left shoulder pain Current Visit: Yes Status: Acute Plan: Pain control X-ray findings started Monitor closely Discharge Plan: Home Plan to discharge in: 24 Hours Discharge Plan: Home Plan to discharge in: 24 Hours
--- NOTE | 2023-06-23 12:19 | P.HP ---
Patient History Date of Service: 06/23/23 Reason for admission: ARM PAIN AND CHEST PAIN History of Present Illness: GILDARDO IS A PATIENT OF MINE SEEN LAST IN MAY. SHE HAS HAD CORONARY STENT A COUPLE OF YEARS AGO AND CATH WITH MILD DISEASE ABOUT [address] LIPSCOMB. SHE IS HAVING EXERSIONAL ARM AND CHEST PAIN A FEW TIMES OFF AND ON SINCE 3 DAYS AGO. CE NEG. SHE WAS ADMITED TO [facility] WITHOUT MY KNOWLEDGE. I TALKED TO DR. LIPSCOMB. HE ASKED TO KEEP HER NPO AND HE MAY DO CATH TODAY. I CALLED [facility] AND HOUSE SUPEVISOR WITHOUT SUCCESS AT 8 AM BEFORE I GOT BUSY AT OFFICE. I WAS ABLE TO GET ORDER IN AT 11 AM OR SO. Allergies acetaminophen [From Darvocet-N 100] Allergy (Verified 04/04/19 02:33) Unknown amoxicillin trihydrate [From Augmentin] Allergy (Verified 04/04/19 02:33) Unknown azithromycin Allergy (Verified 04/04/19 02:33) Unknown colesevelam HCl [From WelChol] Allergy (Verified 04/04/19 02:33) Unknown potassium clavulanate [From Augmentin] Allergy (Verified 04/04/19 02:33) Unknown povidone-iodine [From Betadine] Allergy (Verified 04/04/19 02:33) Unknown propoxyphene napsylate [From Darvocet-N 100] Allergy (Verified 04/04/19 02:33) Unknown rosuvastatin calcium [From Crestor] Allergy (Verified 04/04/19 02:33) Unknown soap [From Betadine] Allergy (Verified 04/04/19 02:33) Unknown tetracycline [Tetracycline] Allergy (Verified 04/04/19 02:33) Unknown levoquin Allergy (Unknown, Uncoded 04/04/19 02:33) Unknown mecaptopurine Allergy (Uncoded 08/24/13 15:15) Unknown tawin Allergy (Uncoded 08/24/13 15:15) Unknown vytorin Allergy (Uncoded 08/24/13 15:15) Unknown Home medications list reviewed: Yes Home Medications: Aspirin Chewable [Aspirin Chewable*] 81 mg PO DAILY 04/04/19 Docosahexanoic AC/Epa [Fish Oil 1,000 MG*] 1,000 mg PO DAILY 12/26/19 Atorvastatin Calcium [Lipitor] 80 mg PO BEDTIME 06/23/23 Metoprolol Succinate 25 mg PO BID 06/23/23 Pantoprazole Sodium 1 tab PO DAILY 06/23/23 - Past Medical/Surgical History Diabetic: No -: GERD -: IBS -: Sleep apnea -: Rheumatic fever as a child -: T-cell leukemia -: Hepatitis C-cured -: torn Left rotator cuff -: compressed discs in back -: tubal ligation -: uterus suspension - Family History Family History: Reviewed- Non-Contributory - Social History Smoking Status: Never smoker Alcohol use: Yes CD- Drugs: No Caffeine use: Yes Place of Residence: Home Review of Systems 10-point ROS is otherwise unremarkable General: Weakness Physical Examination - Vital Signs Temperature: 97.5 F Blood Pressure: 155/70 Pulse: 57 Respirations: 16 Pulse Ox (%): 100 - Physical Exam General: Oriented x3, Acute distress, Mild distress HEENT: Atraumatic, PERRLA, Mucous membr. moist/pink, EOMI, Sclerae nonicteric Neck: Supple, 2+ carotid pulse no bruit, No LAD, Without JVD or thyroid abnormality Respiratory: Clear to auscultation bilaterally, Normal air movement Cardiovascular: Regular rate/rhythm, Normal S1 S2 Gastrointestinal: Normal bowel sounds, No tenderness Musculoskeletal: No tenderness Integumentary: No rashes Neurological: Normal gait, Normal speech, Normal strength at 5/5 x4 extr, Normal tone, Normal affect Lymphatics: No axilla or inguinal lymphadenopathy - Studies Laboratory Data (last 24 hrs) 06/22/23 06/22/23 17:55 17:55 WBC 5.60 Hgb 13.5 Hct 39.0 Plt Count 174 Sodium 138 Potassium 3.4 L BUN 9 Creatinine 0.91 Glucose 124 H Magnesium 2.0 Total Bilirubin 0.6 AST 23 ALT 34 Alkaline Phosphatase 163 H Assessment and Plan - Problems (Diagnosis) (1) Unstable angina Current Visit: No Status: Acute Plan: HOPEFULLY CATH TODAY SEE HPI CONT LOVENOX AND ASPIRIN. PROGNOSIS FAIR. - Advance Directives Does patient have a Living Will: No Does patient have a Durable POA for Healthcare: No
[2023-06-23 12:39] VITALS: BP 155/70; TEMP 97.5
--- NOTE | 2023-06-23 17:22 | EKG ---
Test Date: 2023-06-22 Test Time: 17:05:00 Branch Account Executive: SHEA MEASUREMENT RESULTS: Intervals: Rate: 59 W[place]: 212 QRSD: 86 QT: 450 QTc: 445 [place]: P: 80 [place]: 212 QRS: -51 T: 74 INTERPRETIVE STATEMENTS: Sinus bradycardia with 1st degree AV block Left axis deviation Pulmonary disease pattern Abnormal ECG Compared to ECG 04/05/2019 10:01:48 First degree AV block now present Sinus rhythm no longer present Atrial premature complex(es) no longer present Myocardial infarct finding no longer present T-wave abnormality no longer present Possible ischemia no longer present Electronically Signed On 06-23-23 17:20:13 CDT by Maximus Roche
--- NOTE | 2023-06-23 19:51 | CON ---
Date of Consultation: 06/23/2023 Reason For Consultation: Chest pain. History Of Present Illness: A 73-year-old female known to me, has a history of coronary artery disea se, has an LAD stent. Heart catheterization in January 2022 was patent stent and mild coronary arter y disease otherwise and aneurysmal RCA. She comes in with discomfort of her arm. Does not have any chest pain. She never had chest pain even when she had a stent in her LAD. Denies having any exerti onal symptoms of shortness of breath or nausea, vomiting, or diaphoresis. She is completely comforta ble. She was admitted to rule out acute coronary syndrome. Past Medical History: Coronary artery disease, leukemia, acid reflux, dyslipidemia. Medications: Refer reconciliation sheet for detailed list. Allergies: ACETAMINOPHEN, AMOXICILLIN, AZITHROMYCIN. Family History: No premature coronary artery disease or cancer. Social History: She does not smoke or drink. Does not use any drugs. Past Surgical History: PCI of the LAD. Review of Systems: All systems reviewed are negative except mentioned in HPI. Physical Examination: Vital signs: Reviewed. Head and Neck: Pupils are equal, reactive to light. Intact eye movements. No JVD. No cervical lym phadenopathy. Neck is supple. Thyroid is not enlarged. Lungs: Clear to auscultation bilaterally. No rhonchi, wheezing, or crackles. No accessory muscle u se. Heart: Regular rate and rhythm. No extra sounds. Abdomen: Soft, nontender. Bowel sounds positive. No organomegaly. No masses or hernia. No rigidi ty or rebound. Extremities: No edema, clubbing, cyanosis. Intact pulses. Skin: No rashes. Neurologic: Alert, awake, oriented x3. No acute focal deficits appreciated. Lymph Nodes: No cervical or axillary lymphadenopathy. Investigations: Troponin times 4 negative. BUN is 11, creatinine 0.76. Hemoglobin 13.3. Assessment/recommendation: 1.Chest discomfort, atypical. Cardiac enzymes are negative. She is chest pain free now. She can b e released. She has history of coronary artery disease. I will plan to do an exercise nuclear stres s test on her next week. Discussed the case with Dr. Gomez. In the interim, continue aspirin and st atin. 2.Dyslipidemia. Continue Lipitor 80 mg q.h.s. 3.Hypertension. Blood pressure is well controlled. Continue metoprolol. 4.Hypokalemia. Potassium was replaced. This can be followed as an outpatient. Cardiology will sig n off and will see the patient next week as outlined above. SR/MODL Voice ID: [id number] Report ID: [id number]
[2023-06-23] MEDS ORDERED: ATORVASTATIN 40 MG TAB PO SCH (21:00)
[2023-06-23] MEDS ORDERED: ATORVASTATIN 80 MG TAB PO SCH (21:00)
[2023-06-23] MEDS ORDERED: METOPROLOL XL 25 MG TAB PO SCH (21:00)
== END 2023-06-23 15:51 | disposition home or self-care (01) ==
LOC: ER 17:04 → ERHOLD 20:57 → 2ND 23:01
PROVIDERS: ADMIT Internal Medicine; ATTEND Internal Medicine
DX: I20.0 Unstable angina (principal); I25.10 Atherosclerotic heart disease of native coronary artery without angina pectoris; K21.9 Gastro-esophageal reflux disease without esophagitis; G47.30 Sleep apnea, unspecified; K58.9 Irritable bowel syndrome, unspecified; E87.6 Hypokalemia; M25.512 Pain in left shoulder; E78.5 Hyperlipidemia, unspecified; Z95.5 Presence of coronary angioplasty implant and graft; Z88.1 Allergy status to other antibiotic agents; Z88.8 Allergy status to other drugs, medicaments and biological substances; Z85.6 Personal history of leukemia
CPT/HCPCS: 93005; 85025 ×2; 80048; 36415; 83735; 80061; 80076; 81003; 84484 ×4; 80053; 71045; 73030; 99285; J1650; G0378 ×4